=== PATIENT | male | born 1995 | race Caucasian/White ===

== ENCOUNTER 2024-06-24 19:19 | Inpatient (IN) ==
[2024-06-24] MEDS ORDERED: Patient's ALLERGY Info needs ENTERED SCH (19:24)
[2024-06-24 20:48] LABS: Alanine Aminotransferase 11 U/L (7-52); Albumin Globulin Ratio 0.9 (0.9-2); Albumin Level 4.3 gm/dl (3.4-5.0); Alkaline Phosphatase 127 U/L (34-104); Anion Gap 8 (3-11); Aspartate Aminotransferase 12 U/L (13-39); BUN Creatinine Ratio 23.2 (10-20); Bilirubin,Total 0.2 mg/dl (0.2-1.0); Blood Urea Nitrogen 13 mg/dl (6-23); Calcium 9.7 mg/dl (8.6-10.3); Carbon Dioxide 29 mmol/L (21-32); Chloride 106 mmol/L (98-107); Creatinine Clr Calc Pharmacy 223.6 ml/min; Est GFR (African American) > 150.0 ml/min; Est GFR (Non-African American) 138.8 ml/min; Globulin 4.6 gm/dl (2.5-4.0); Glucose 112 mg/dl (70-99(Fasting)); Lipase 23 U/L (11-82); Potassium 3.7 mmol/L (3.5-5.1); Sodium 143 mmol/L (136-145); Total Protein 8.9 gm/dl (6.0-8.3)
[2024-06-24 20:51] LABS: Basophils # (auto) 0.02 K/uL (0.00-0.20); Basophils % (auto) 0.2 %; Eosinophils # (auto) 0.09 K/uL (0.00-0.50); Eosinophils % (auto) 0.9 %; Hematocrit (blood only) 34.3 % (42.0-52.0); Hemoglobin 9.9 g/dl (14.0-18.0); Immature Granulocytes # (auto) 0.04 K/uL (0.01-0.20); Immature Granulocytes % (auto) 0.4 %; Lymphocytes # (auto) 1.42 K/uL (1.20-3.40); Lymphocytes % (auto) 13.4 %; Mean Corpuscular Hemoglobin 21.9 pg (25.0-34.0); Mean Corpuscular Hgb Conc 28.9 g/dL (32.0-36.0); Mean Corpuscular Volume 75.9 fL (80.0-100.0); Mean Platelet Volume 8.7 fL (9.4-12.4); Monocytes # (auto) 0.54 K/uL (0.11-0.59); Monocytes % (auto) 5.1 %; Neutrophils # (auto) 8.46 K/uL (1.40-6.50); Platelet Count 462 K/uL (130-400); RDW Standard Deviation 46.5 fL (36.4-46.3); Red Blood Count 4.52 M/uL (4.70-6.10); White Blood Count 10.57 K/ul (4.8-10.8)
[2024-06-24 20:54] LABS: Troponin I High Sensitivity < 2.3 pg/ml (0-20)
[2024-06-24] MEDS: PIPERACILLIN/TAZOBACTAM 4.5 GM/100 ML BAG IV ONE (21:49)
[2024-06-24] MEDS: HYDROmorphone INJ 0.5 MG/0.5 ML SYR IV STA (21:50)
[2024-06-24] MEDS: SODIUM CHLORIDE 0.9% 500 ML IV STA (21:50)
[2024-06-24] MEDS: OPTIRAY 320 100ml IV ONE (22:29)
[2024-06-24] MEDS: oxyCODONE HCL 20 MG TABCR (OxyCONTIN) PO STA (23:38)
--- NOTE | 2024-06-25 00:11 | Emergency Department Note ---
Impression & Plan UTI (urinary tract infection), bacterial, Suprapubic catheter, Colostomy in place, Paraplegia, Chronic pain ED Provider Note CHIEF COMPLAINT: UTI HISTORY OF PRESENT ILLNESS: This 29-year-old male patient past medical history of traumatic spinal cord injury, paraplegia, suprapubic catheter and colostomy presents to the emergency department with complaints of UTI. Patient states he has had some intermittent vomiting, difficulty sleeping and generalized pain. He normally changes his suprapubic catheter once a week, but states he just moved here last month from [place] and ran out of his catheters. He also states he ran out of his pain medication. Patient initially spent some time in a [facility] after the accident for rehabilitation. He went home to his cousin's house and has now moved in with his sister. Patient states he does not have a local physician and has no medication refills. He is concerned that he has an obstruction of his suprapubic catheter as he has been peeing from his urethra as opposed to draining into the catheter bag. REVIEW OF SYSTEMS: A review of systems was performed with positives and pertinent negatives listed in the history of present illness. 10 systems were reviewed and are otherwise negative. ALLERGIES: see below MEDICATIONS: see below PMH: see below SOCIAL HISTORY: see below DDx: Dehydration, UTI, sepsis, electrolyte abnormality, pneumonia, viral etiology among others. PHYSICAL EXAM: Vital signs reviewed. General: Chronically ill-appearing 29-year-old male, in no significant distress. HEENT: No scleral icterus, PERRLA, neck supple. tracheostomy scar Cardiovascular: Regular rate and rhythm, no extra sounds. Pulmonary: Clear to auscultation bilaterally, normal work of breathing. Abdomen: Soft, nontender, nondistended, positive bowel sounds. Suprapubic catheter with crusting and sediment noted. Colostomy noted to the left lower quadrant. Musculoskeletal: atrophic bilateral lower extremities, subcutaneous edema, stage I pressure ulcer noted to the left calf above the pressure boot. Several areas of superficial ulceration noted. Posttraumatic wound of the left lower buttock. Neurologic: Patient awake alert and oriented x 3, speech is clear Skin: Warm, dry, no rash EMERGENCY DEPARTMENT COURSE/MDM: This pt was evaluated and appeared to be in no distress. IV access was obtained and lab work drawn. Pt was hydrated with NSS. He requested pain medication and was given IV Dilaudid x 1 by request. Lab work is fairly reassuring. Pt was slightly tachycardic, which resolved after IVF and pain medication. Lactate and procal are WNL. WBC 10.5. Blood cx has been sent. Suprapubic catheter was changed, see below. UA with cx has been sent. IV Zosyn was administered. PT requested additional pain medication and was given his home po oxycodone dose. Pt has no local care established, has run out of catheters and medication. At this time he will require hospitalization as he is unable to care for self. He was made aware of the plan and agreed. Case was d/w the hospitalist service for admission and further management. PROCEDURE: Suprapubic catheter exchange Indication: UTI In a sterile fashion, the patient was prepped and draped. Patient's suprapubic catheter site was cleansed with Betadine. Significant crusting was removed. the indwelling catheter balloon was deflated, an 18 Turkmen Wu catheter was inserted and reinflated with 10 cc of sterile water. Immediate urine return was visualized. Catheter was clamped to the patient's left leg. Patient tolerated the procedure well. MONITORING: An order for cardiac monitoring was placed and the patient is noted to be in a Normal sinus rhythm at 100 beats per minute. RADIOLOGY: chest x-ray to my interpretation reveals no evidence of focal lung consolidation or failure. Dilated loops of bowel in the left upper quadrant noted, No free air. DISPOSITION: Admission Past Med/Surg History Problem List (Updated 06/30/24 @ 09:08 by Yvette Burden MD) Chronic pain (Acute) UTI (urinary tract infection), bacterial (Acute) Suprapubic catheter (Acute) Colostomy in place (Acute) Paraplegia (Acute) Social History (Updated 06/25/24 @ 00:17 by Yvette Burden MD) Smoking Status: Current some day smoker Tobacco Type: E-cigarettes / Vaping Hx Alcohol Use: Yes Alcohol type: wine Hx Substance Use: Yes Preferred Language: Portuguese Communication Ability: Effective Graphic Designer Required: No Beliefs That Will Affect Care: None Current Living Situation: Family Current Living Situation Comment: apartment with sister Feels Safe at Home: Yes Safety Concerns: Feels Safe At This Time Assistive Devices: Slide Board and Walker Allergies Allergies Allergy/AdvReac Type Severity Reaction Status Date / Time No Known Allergies Allergy Unverified 06/25/24 02:31 Home Meds Home Medications Medication Instructions Recorded Confirmed ondansetron 4 mg disintegrating 4 mg PO Q8H PRN Vomiting 06/25/24 06/25/24 tablet oxycodone 20 mg tablet 20 mg PO Q4H PRN Pain 06/25/24 06/25/24 pantoprazole 40 mg tablet,delayed 40 mg PO BID 06/25/24 06/25/24 release polyethylene glycol 3350 17 gram 17 g PO DAILY 06/25/24 06/25/24 oral powder packet quetiapine 100 mg tablet 100 mg PO HS 06/25/24 06/25/24 sennosides 8.6 mg tablet (senna) 17.2 mg PO HS 06/25/24 06/25/24 therapeutic multivitamin 1 tab PO DAILY 06/25/24 06/25/24 Results & Data (ED) Vital Signs Vital Signs - 24 hr 06/24/24 19:24 06/24/24 19:31 06/24/24 19:53 Temperature 36.9 C Temperature Source Oral Pulse Rate 101 H Pulse Rate [Apical] 100 H Respiratory Rate 20 Blood Pressure [Right Arm] 104/64 Blood Pressure Mean [Right Arm] 77 Pulse Oximetry 95 Oxygen Delivery Method Room Air Sepsis Recent Fever Within 48 Hours No Sepsis New/Unexplained Change in Mental Status N/A Sepsis Action Taken by Nursing No Action Required 06/24/24 22:51 06/24/24 22:51 06/24/24 23:29 Temperature Temperature Source Pulse Rate 92 H 91 H Pulse Rate [Apical] 91 H Respiratory Rate 20 23 Blood Pressure [Right Arm] 110/66 Blood Pressure Mean [Right Arm] 80 Pulse Oximetry 96 96 Oxygen Delivery Method Room Air Room Air Sepsis Recent Fever Within 48 Hours Sepsis New/Unexplained Change in Mental Status Sepsis Action Taken by Group Home Medications Current Medication List: was personally reviewed by me Laboratory Data Attestation: I reviewed the patient's lab results. 06/29/24 10:13 06/29/24 10:13 Lab Results 06/24/24 06/24/24 06/24/24 Range/Units 19:47 20:48 20:49 WBC 10.57 (4.8-10.8) K/ul RBC 4.52 L (4.70-6.10) M/uL Hgb 9.9 L (14.0-18.0) g/dl Hct 34.3 L (42.0-52.0) % MCV 75.9 L (80.0-100.0) fL MCH 21.9 L (25.0-34.0) pg MCHC 28.9 L (32.0-36.0) g/dL RDW Std Deviation 46.5 H (36.4-46.3) fL RDW Coeff of Nuvia 17.0 H (11.5-14.5) % Plt Count 462 H (130-400) K/uL MPV 8.7 L (9.4-12.4) fL Immature Gran % (Auto) 0.4 % Neut % (Auto) 80.0 % Lymph % (Auto) 13.4 % Allen % (Auto) 5.1 % Eos % (Auto) 0.9 % Baso % (Auto) 0.2 % Reticulocyte % (Auto) 1.35 (0.50-2.00) % Neut # (Auto) 8.46 H (1.40-6.50) K/uL Lymph # (Auto) 1.42 (1.20-3.40) K/uL Allen # (Auto) 0.54 (0.11-0.59) K/uL Eos # (Auto) 0.09 (0.00-0.50) K/uL Baso # (Auto) 0.02 (0.00-0.20) K/uL Reticulocyte # 0.060 (0.020-0.100) 10^6/uL Immature Gran # (Auto) 0.04 (0.01-0.20) K/uL Sodium 143 (136-145) mmol/L Potassium 3.7 (3.5-5.1) mmol/L Chloride 106 (98-107) mmol/L Carbon Dioxide 29 (21-32) mmol/L Anion Gap 8 (3-11) BUN 13 (6-23) mg/dl Creatinine 0.56 L (0.6-1.4) mg/dl Est Cr Clr Drug Dosing 223.6 ml/min Est GFR ( Amer) > 150.0 ml/min Est GFR (Non-Af Amer) 138.8 ml/min BUN/Creatinine Ratio 23.2 H (10-20) Glucose 112 H (70-99(Fasting)) mg/dl Estimat Average Glucose 82 mg/dl Hemoglobin A1c 4.5 (4.5-5.6) % Lactate 1.2 (0.4-2.0) mmol/L Calcium 9.7 (8.6-10.3) mg/dl Iron 28 L (35-175) mcg/dl Transferrin 289 (200-360) mg/dl Ferritin 20.6 (8-388) ng/ml Total Bilirubin 0.2 (0.2-1.0) mg/dl AST 12 L (13-39) U/L ALT 11 (7-52) U/L Alkaline Phosphatase 127 H (34-104) U/L Troponin I High Sens < 2.3 (0-20) pg/ml Total Protein 8.9 H (6.0-8.3) gm/dl Albumin 4.3 (3.4-5.0) gm/dl Globulin 4.6 H (2.5-4.0) gm/dl Albumin/Globulin Ratio 0.9 (0.9-2) Lipase 23 (11-82) U/L Vitamin B12 302 (180-914) pg/ml Folate 8.25 (>5.38) ng/ml Procalcitonin < 0.02 (0-0.5) ng/ml Urine Color Urine Appearance (Clear) Urine pH (4.5-7.5) Ur Specific [place] (1.000-1.030) Urine Protein (Negative) Urine Glucose (UA) (Negative) Urine Ketones (Negative) Urine Blood (Negative) Urine Nitrite (Negative) Urine Bilirubin (Negative) Urine Urobilinogen (Negative) Ur Leukocyte Esterase (Negative) Urine WBC (Auto) (0-5) /hpf Urine RBC (Auto) (0-2) /hpf U Hyaline Cast (Auto) (0-2) /lpf U Epithel Cells (Auto) (0-2) /hpf Urine Bacteria (Auto) (None Seen) 06/24/24 Range/Units 22:55 WBC (4.8-10.8) K/ul RBC (4.70-6.10) M/uL Hgb (14.0-18.0) g/dl Hct (42.0-52.0) % MCV (80.0-100.0) fL MCH (25.0-34.0) pg MCHC (32.0-36.0) g/dL RDW Std Deviation (36.4-46.3) fL RDW Coeff of Nuvia (11.5-14.5) % Plt Count (130-400) K/uL MPV (9.4-12.4) fL Immature Gran % (Auto) % Neut % (Auto) % Lymph % (Auto) % Allen % (Auto) % Eos % (Auto) % Baso % (Auto) % Reticulocyte % (Auto) (0.50-2.00) % Neut # (Auto) (1.40-6.50) K/uL Lymph # (Auto) (1.20-3.40) K/uL Allen # (Auto) (0.11-0.59) K/uL Eos # (Auto) (0.00-0.50) K/uL Baso # (Auto) (0.00-0.20) K/uL Reticulocyte # (0.020-0.100) 10^6/uL Immature Gran # (Auto) (0.01-0.20) K/uL Sodium (136-145) mmol/L Potassium (3.5-5.1) mmol/L Chloride (98-107) mmol/L Carbon Dioxide (21-32) mmol/L Anion Gap (3-11) BUN (6-23) mg/dl Creatinine (0.6-1.4) mg/dl Est Cr Clr Drug Dosing ml/min Est GFR ( Amer) ml/min Est GFR (Non-Af Amer) ml/min BUN/Creatinine Ratio (10-20) Glucose (70-99(Fasting)) mg/dl Estimat Average Glucose mg/dl Hemoglobin A1c (4.5-5.6) % Lactate (0.4-2.0) mmol/L Calcium (8.6-10.3) mg/dl Iron (35-175) mcg/dl Transferrin (200-360) mg/dl Ferritin (8-388) ng/ml Total Bilirubin (0.2-1.0) mg/dl AST (13-39) U/L ALT (7-52) U/L Alkaline Phosphatase (34-104) U/L Troponin I High Sens (0-20) pg/ml Total Protein (6.0-8.3) gm/dl Albumin (3.4-5.0) gm/dl Globulin (2.5-4.0) gm/dl Albumin/Globulin Ratio (0.9-2) Lipase (11-82) U/L Vitamin B12 (180-914) pg/ml Folate (>5.38) ng/ml Procalcitonin (0-0.5) ng/ml Urine Color Yellow Urine Appearance Cloudy A (Clear) Urine pH 8.5 H (4.5-7.5) Ur Specific [place] > 1.045 H (1.000-1.030) Urine Protein 1+ H (Negative) Urine Glucose (UA) Negative (Negative) Urine Ketones Negative (Negative) Urine Blood 1+ H (Negative) Urine Nitrite Positive A (Negative) Urine Bilirubin Negative (Negative) Urine Urobilinogen Negative (Negative) Ur Leukocyte Esterase 2+ H (Negative) Urine WBC (Auto) >50 H (0-5) /hpf Urine RBC (Auto) >20 H (0-2) /hpf U Hyaline Cast (Auto) 0-2 (0-2) /lpf U Epithel Cells (Auto) 0-2 (0-2) /hpf Urine Bacteria (Auto) 2+ H (None Seen) Administered Medications Ferrous Sulfate (Ferrous Sulfate 325 Mg Tab) 325 mg PO QAM ON LICENSE OF [facility] Stop: 07/26/24 08:59 Last Admin: 06/29/24 10:33 Dose: Not Given Documented By: Admin: 06/28/24 08:49 Dose: Not Given Documented By: Admin: 06/27/24 08:49 Dose: Not Given Documented By: Admin: 06/26/24 08:28 Dose: Not Given Documented By: [facility] Hydromorphone HCl (Hydromorphone Inj 0.5 Mg/0.5 Ml Syr) 0.5 mg IV Q8H PRN PRN Reason: Severe Pain (Scale 7, 8, 9,10) Stop: 07/11/24 11:49 Last Admin: 06/30/24 02:45 Dose: 0.5 mg Documented By: Admin: 06/29/24 18:43 Dose: 0.5 mg Documented By: Admin: 06/29/24 11:09 Dose: 0.5 mg Documented By: Admin: 06/29/24 03:22 Dose: 0.5 mg Documented By: Admin: 06/28/24 19:16 Dose: 0.5 mg Documented By: Admin: 06/28/24 11:15 Dose: 0.5 mg Documented By: DAVID Promethazine HCl (Phenergan) 6.25 mg in 50.25 mls @ 201 mls/hr IV Q6H PRN PRN Reason: Nausea And Vomiting Stop: 07/25/24 01:38 Last Infusion: 06/26/24 19:25 Dose: Infused Documented By: Admin: 06/26/24 18:12 Dose: 201 mls/hr Documented By: Infusion: 06/25/24 04:36 Dose: Infused Documented By: Admin: 06/25/24 04:10 Dose: 201 mls/hr Documented By: AUDREY Ceftriaxone Sodium (Rocephin) 2,000 mg in 50 mls @ 100 mls/hr IV Q24H SAHARA; Protocol Stop: 06/30/24 11:59 Last Infusion: 06/29/24 12:54 Dose: Infused Documented By: Admin: 06/29/24 12:24 Dose: 100 mls/hr Documented By: ABDIRASHID Multivitamins/Minerals (Cerovite Adv Formula Tab) 1 tab PO DAILY SAHARA Stop: 07/25/24 08:59 Last Admin: 06/29/24 10:34 Dose: 1 tab Documented By: Admin: 06/28/24 08:49 Dose: Not Given Documented By: Admin: 06/27/24 08:49 Dose: Not Given Documented By: Admin: 06/26/24 08:29 Dose: Not Given Documented By: Admin: 06/25/24 09:50 Dose: Not Given Documented By: TRE Oxycodone HCl (Oxycodone Hcl Ir 5 Mg Tab (Immediate Release)) 20 mg PO Q4H PRN PRN Reason: Moderate Pain (Scale 4, 5, 6) Stop: 07/09/24 03:43 Last Admin: 06/30/24 06:04 Dose: 20 mg Documented By: Admin: 06/30/24 00:49 Dose: 20 mg Documented By: Admin: 06/29/24 20:21 Dose: 20 mg Documented By: Admin: 06/29/24 14:53 Dose: 20 mg Documented By: Admin: 06/29/24 10:32 Dose: 20 mg Documented By: Admin: 06/29/24 06:06 Dose: 20 mg Documented By: Admin: 06/29/24 01:46 Dose: 20 mg Documented By: Admin: 06/28/24 21:46 Dose: 20 mg Documented By: Admin: 06/28/24 17:33 Dose: 20 mg Documented By: [facility] Admin: 06/28/24 13:06 Dose: 20 mg Documented By: [facility] Admin: 06/28/24 08:54 Dose: 20 mg Documented By: [facility] Admin: 06/28/24 05:02 Dose: 20 mg Documented By: Admin: 06/27/24 20:58 Dose: 20 mg Documented By: Admin: 06/27/24 16:34 Dose: 20 mg Documented By: [facility] Pantoprazole Sodium (Pantoprazole 40 Mg Tab) 40 mg PO BID SAHARA Stop: 07/25/24 08:59 Last Admin: 06/29/24 22:10 Dose: Not Given Documented By: Admin: 06/29/24 10:35 Dose: Not Given Documented By: Admin: 06/28/24 21:45 Dose: Not Given Documented By: Admin: 06/28/24 08:49 Dose: Not Given Documented By: [facility] Admin: 06/27/24 20:58 Dose: Not Given Documented By: Admin: 06/27/24 08:49 Dose: Not Given Documented By: [facility] Admin: 06/26/24 20:35 Dose: Not Given Documented By: [facility] Admin: 06/26/24 08:29 Dose: Not Given Documented By: [facility] Admin: 06/25/24 23:02 Dose: Not Given Documented By: [facility] Admin: 06/25/24 09:50 Dose: Not Given Documented By: Quetiapine Fumarate (Quetiapine Fumarate 100 Mg Tablet) 100 mg PO HS SAHARA Stop: 07/25/24 20:59 Last Admin: 06/29/24 22:10 Dose: Not Given Documented By: Admin: 06/28/24 21:46 Dose: 100 mg Documented By: Admin: 06/27/24 21:22 Dose: 100 mg Documented By: Admin: 06/26/24 22:12 Dose: 100 mg Documented By: Admin: 06/25/24 23:02 Dose: 100 mg Documented By: CARLOS Senna/Docusate Sodium (Docusate Sodium/Senna 50/8.6mg Tab) 1 tab PO QAM SAHARA Stop: 07/25/24 08:59 Last Admin: 06/29/24 10:43 Dose: 1 tab Documented By: Admin: 06/28/24 08:49 Dose: Not Given Documented By: Admin: 06/27/24 08:49 Dose: Not Given Documented By: Admin: 06/26/24 08:28 Dose: Not Given Documented By: Admin: 06/25/24 09:50 Dose: Not Given Documented By: TRE Discontinued Medications Furosemide (Furosemide Inj 20 Mg/2 Ml Vial) 20 mg IV ONE ONE Stop: 06/25/24 05:21 Last Admin: 06/25/24 09:02 Dose: Not Given Documented By: TRE Furosemide (Furosemide 40 Mg/4 Ml Vial) 40 mg IV ONE ONE Stop: 06/28/24 11:37 Last Admin: 06/28/24 13:05 Dose: 40 mg Documented By: DAVID Furosemide (Furosemide 40 Mg/4 Ml Vial) 60 mg IV ONE ONE Stop: 06/29/24 10:59 Last Admin: 06/29/24 12:24 Dose: 60 mg Documented By: ABDIRASHID Hydromorphone HCl (Hydromorphone Inj 0.5 Mg/0.5 Ml Syr) 0.5 mg IV NOW STA Stop: 06/24/24 21:03 Last Admin: 06/24/24 21:50 Dose: 0.5 mg Documented By: ARISTIDES Hydromorphone HCl (Hydromorphone Inj 0.5 Mg/0.5 Ml Syr) 0.5 mg IV Q6H PRN PRN Reason: Pain Stop: 07/09/24 03:45 Last Admin: 06/27/24 07:21 Dose: 0.5 mg Documented By: Admin: 06/27/24 01:01 Dose: 0.5 mg Documented By: Admin: 06/26/24 18:57 Dose: 0.5 mg Documented By: Admin: 06/26/24 12:43 Dose: 0.5 mg Documented By: [facility] Hydromorphone HCl (Hydromorphone Inj 0.5 Mg/0.5 Ml Syr) 0.5 mg IV Q6H PRN PRN Reason: Severe Pain (Scale 7, 8, 9,10) Stop: 07/09/24 03:45 Last Admin: 06/28/24 03:28 Dose: 0.5 mg Documented By: Admin: 06/27/24 19:53 Dose: 0.5 mg Documented By: Admin: 06/27/24 13:32 Dose: 0.5 mg Documented By: DAVID Sodium Chloride (Nss) 500 mls @ 999 mls/hr IV .Q31M STA Stop: 06/24/24 20:58 Last Infusion: 06/24/24 22:21 Dose: Infused Documented By: Admin: 06/24/24 21:50 Dose: 999 mls/hr Documented By: ARISTIDES Piperacillin Sod/Tazobactam Sod (Zosyn) 4.5 gm in 100 mls @ 200 mls/hr IV NOW ONE Stop: 06/24/24 21:58 Last Infusion: 06/24/24 22:21 Dose: Infused Documented By: Admin: 06/24/24 21:49 Dose: 200 mls/hr Documented By: ARISTIDES Cefepime HCl 2,000 mg/ Syringe 20 mls @ 5 mls/min IV Q8H ON LICENSE OF [facility]; Protocol Stop: 07/05/24 02:59 Last Admin: 06/28/24 11:15 Dose: 5 mls/min Documented By: Admin: 06/28/24 03:28 Dose: 5 mls/min Documented By: Admin: 06/27/24 18:34 Dose: 5 mls/min Documented By: Admin: 06/27/24 11:20 Dose: 5 mls/min Documented By: Admin: 06/27/24 03:04 Dose: 5 mls/min Documented By: Admin: 06/26/24 20:34 Dose: 5 mls/min Documented By: Admin: 06/26/24 11:35 Dose: 5 mls/min Documented By: Admin: 06/26/24 04:00 Dose: 5 mls/min Documented By: Admin: 06/25/24 18:37 Dose: 5 mls/min Documented By: Admin: 06/25/24 12:07 Dose: 5 mls/min Documented By: Admin: 06/25/24 04:00 Dose: 5 mls/min Documented By: AUDREY Iron Sucrose 300 mg/ Sodium (Chloride) 265 mls @ 176.667 mls/hr IV TODAY@0930 ONE; Protocol Stop: 06/25/24 10:59 Last Infusion: 06/25/24 11:20 Dose: Infused Documented By: Admin: 06/25/24 09:50 Dose: 176.7 mls/hr Documented By: TRE Albumin Human (Albumin 25%) 25 gm in 100 mls @ 50 mls/hr IV ONE ONE Stop: 06/26/24 06:36 Last Infusion: 06/26/24 11:32 Dose: Infused Documented By: Admin: 06/26/24 09:32 Dose: 50 mls/hr Documented By: DAVID Ceftriaxone Sodium (Rocephin) 2,000 mg in 50 mls @ 100 mls/hr IV Q24H SAHARA; Protocol Stop: 07/08/24 11:59 Last Admin: 06/28/24 13:36 Dose: Not Given Documented By: DAVID Ioversol (Optiray 320 100ml) 92 ml IV ONCE ONE Stop: 06/24/24 22:30 Last Admin: 06/24/24 22:29 Dose: 92 ml Documented By: SD Ketorolac Tromethamine (Ketorolac Tromethamine 15 Mg/Ml Vial) 15 mg IV NOW ONE Stop: 06/25/24 02:46 Last Admin: 06/25/24 03:56 Dose: Not Given Documented By: AUDREY Ketorolac Tromethamine (Ketorolac Tromethamine 15 Mg/Ml Vial) 15 mg IV Q6H PRN PRN Reason: Pain Stop: 06/30/24 03:44 Last Admin: 06/26/24 15:33 Dose: 15 mg Documented By: Admin: 06/25/24 13:19 Dose: 15 mg Documented By: Admin: 06/25/24 04:10 Dose: 15 mg Documented By: AUDREY Oxycodone HCl (Oxycodone Hcl 20 Mg Tabcr (Oxycontin)) 20 mg PO NOW STA Stop: 06/24/24 23:02 Last Admin: 06/24/24 23:38 Dose: 20 mg Documented By: FABIAN Oxycodone HCl (Oxycodone Hcl Ir 5 Mg Tab (Immediate Release)) 20 mg PO Q4H PRN PRN Reason: Pain Stop: 07/09/24 03:43 Last Admin: 06/27/24 12:34 Dose: 20 mg Documented By: Admin: 06/27/24 08:44 Dose: 20 mg Documented By: Admin: 06/27/24 03:05 Dose: 20 mg Documented By: Admin: 06/26/24 22:12 Dose: 20 mg Documented By: Admin: 06/26/24 18:03 Dose: 20 mg Documented By: Admin: 06/26/24 13:51 Dose: 20 mg Documented By: Admin: 06/26/24 08:24 Dose: 20 mg Documented By: Admin: 06/26/24 04:00 Dose: 20 mg Documented By: Admin: 06/25/24 23:02 Dose: 20 mg Documented By: Admin: 06/25/24 18:51 Dose: 20 mg Documented By: Admin: 06/25/24 14:26 Dose: 20 mg Documented By: Admin: 06/25/24 09:58 Dose: 20 mg Documented By: Admin: 06/25/24 04:00 Dose: 20 mg Documented By: AUDREY Quetiapine Fumarate (Quetiapine Fumarate 100 Mg Tablet) 100 mg PO NOW STA Stop: 06/25/24 02:34 Last Admin: 06/25/24 04:00 Dose: 100 mg Documented By: AUDREY Discharge Plan Visit Data Chief Complaint: Urinary Symptoms Stated Complaint: UTI ED Provider: Yvette Burden Discharge Problem: UTI (urinary tract infection), bacterial, Suprapubic catheter, Colostomy in place, Paraplegia, Chronic pain Patient Disposition: Admitted As Inpatient Discharge Instructions Interventions: ED Discharge Assessment Last Done: 06/25/24 01:15 Discharge Problem: Chronic pain Qualifiers: Chronic pain type: chronic pain syndrome Qualified Code(s): G89.4 - Chronic pain syndrome
--- NOTE | 2024-06-25 00:18 | CT Scan Report ---
Exam(s): CT ABDOMEN + PELVIS With Contrast IV Amt: 92 cc opti 320 EXAM: CT Abdomen and Pelvis With Intravenous Contrast CLINICAL HISTORY: Abdominal Pain and hematuria. TECHNIQUE: Axial computed tomography images of the abdomen and pelvis with intravenous contrast. CTDI is 23 mGy and DLP is 1267 mGy-cm. Automated exposure control was utilized for the study. A dose lowering technique was utilized adhering to the principles of ALARA. CONTRAST: Patient received 92 cc opti 320 of IV contrast COMPARISON: No relevant prior studies available. FINDINGS: Lung bases: Unremarkable. No mass. No consolidation. ABDOMEN: Liver: Unremarkable. No mass. Gallbladder and bile ducts: Cholelithiasis. No ductal dilation. Pancreas: Unremarkable. No mass. No ductal dilation. Spleen: Unremarkable. No splenomegaly. Adrenals: Unremarkable. No mass. Kidneys and ureters: Unremarkable. No solid mass. No hydronephrosis. Stomach and bowel: There is small inflammatory stranding of the left lower quadrant colostomy. No obstruction. No mucosal thickening. PELVIS: Appendix: No findings to suggest acute appendicitis. Bladder: Unremarkable. No mass. Reproductive: Unremarkable as visualized. ABDOMEN and PELVIS: Intraperitoneal space: Unremarkable. No free air. No significant fluid collection. Bones/joints: No acute fracture. No dislocation. Soft tissues: There is marked nonspecific subcutaneous edema and scarring most prominent of the flanks. Small fat-containing umbilical hernia. Vasculature: Unremarkable. No abdominal aortic aneurysm. Lymph nodes: Unremarkable. No enlarged lymph nodes. IMPRESSION: 1. There is small inflammatory stranding of the left lower quadrant colostomy. This may be infectious or inflammatory. 2. Cholelithiasis. 3. There is marked nonspecific subcutaneous edema and scarring most prominent of the flanks Electronically signed by: Hazel Amador MD 06/25/24 00:17 AM
[2024-06-25 00:19] LABS: Appearance Urine Cloudy (Clear); Bacteria Urine Automated 2+ (None Seen); Bilirubin Urine Negative (Negative); Blood Urine 1+ (Negative); Cast Urine Automated 0-2 /lpf (0-2); Color Urine Yellow; Epithelial Cell Urine Auto 0-2 /hpf (0-2); Glucose Urine UA Negative (Negative); Ketones Urine Negative (Negative); Leukocyte Esterase Urine 2+ (Negative); Nitrite Urine Positive (Negative); Protein Urine 1+ (Negative); RBC Urine Automated >20 /hpf (0-2); Specific Gravity Urine > 1.045 (1.000-1.030); Urobilinogen Urine Negative (Negative); WBC Urine Automated >50 /hpf (0-5); pH Urine 8.5 (4.5-7.5)
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
[2024-06-25] MEDS ORDERED: MELATONIN 3 MG TAB PO PRN (01:41)
[2024-06-25 01:42] LABS: Folate (Folic Acid),Ser orPlas 8.25 ng/ml (>5.38)
[2024-06-25] MEDS ORDERED: POLYETHYLENE (MIRALAX) 17 GM PACK PO PRN (01:42)
[2024-06-25 02:48] LABS: Iron 28 mcg/dl (35-175); Transferrin 289 mg/dl (200-360)
[2024-06-25 03:08] LABS: Ferritin 20.6 ng/ml (8-388)
[2024-06-25] MEDS: KETOROLAC TROMETHAMINE 15 MG/ML VIAL IV ONE (03:56)
--- NOTE | 2024-06-25 03:56 | Ultrasound Report ---
Exam(s): US VENOUS BILATERAL LOWER EXTREMITIES EXAM: US Duplex Bilateral Lower Extremities Veins CLINICAL HISTORY: Reason for exam: leg swelling. TECHNIQUE: Real-time duplex ultrasound scan of the bilateral lower extremity veins integrating B-mode two-dimensional vascular structure, Doppler spectral analysis, color flow Doppler imaging and compression. COMPARISON: No relevant prior studies available. FINDINGS: Right deep veins: Unremarkable. No DVT in the right common femoral, femoral, proximal deep femoral or popliteal veins. The veins demonstrate normal color flow, are normally compressible, with normal phasic flow and/or augmentation response. Right superficial veins: Unremarkable. No thrombus in the visualized right great saphenous vein. Left deep veins: Unremarkable. No DVT in the left common femoral, femoral, proximal deep femoral or popliteal veins. The veins demonstrate normal color flow, are normally compressible, with normal phasic flow and/or augmentation response. Left superficial veins: Unremarkable. No thrombus in the visualized left great saphenous vein. Soft tissues: Edema at the bilateral calves. IMPRESSION: 1. Normal bilateral lower extremity duplex venous ultrasound. 2. Edema at the bilateral calves. Electronically signed by: Meng Amador MD 06/25/24 03:54 AM
[2024-06-25] MEDS: oxyCODONE HCL IR 5 MG TAB (IMMEDIATE RELEASE) PO PRN (04:00)
[2024-06-25] MEDS: CEFEPIME 2,000 MG in SYRINGE 0 ML IV SCH (04:00)
[2024-06-25] MEDS: QUEtiapine FUMARATE 100 MG TABLET PO STA (04:00)
[2024-06-25] MEDS: KETOROLAC TROMETHAMINE 15 MG/ML VIAL IV PRN (04:10)
[2024-06-25] MEDS: PROMETHAZINE 6.25 MG/50.25 ML BAG IV PRN (04:10)
--- NOTE | 2024-06-25 07:16 | XRay Report ---
XR chest 1V portable HISTORY: infection COMPARISON: None. FINDINGS: No pneumothorax. No pleural effusions. The cardiac silhouette is normal in size. No evidenc e for bone edema. No focal lung consolidations to suggest a pneumonia. There are few small bibasilar linear densities suggesting subsegmental atelectasis or scarring. IMPRESSION: No acute process. ACT 112: Negative or not required by law. Electronically signed by: López Champion M.D. 06/25/2024 7:14 AM
[2024-06-25] MEDS: FUROSEMIDE INJ 20 MG/2 ML VIAL IV ONE (09:02)
[2024-06-25] MEDS: IRON SUCROSE 300 MG in SODIUM CHLORIDE 0.9% 250 ML IV ONE (09:50)
[2024-06-25] MEDS: PANTOprazole 40 MG TAB PO SCH (09:50)
[2024-06-25] MEDS: CEROVITE ADV FORMULA TAB PO SCH (09:50)
[2024-06-25] MEDS: DOCUSATE SODIUM/SENNA 50/8.6MG TAB PO SCH (09:50)
[2024-06-25 15:47] LABS: Reticulocyte % 1.35 % (0.50-2.00); Reticulocytes # 0.06 10^6/uL (0.020-0.100)
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
[2024-06-25 21:06] LABS: Estimated Average Glucose 82 mg/dl; Hemoglobin A1C 4.5 % (4.5-5.6)
[2024-06-25] MEDS: QUEtiapine FUMARATE 100 MG TABLET PO SCH (23:02)
[2024-06-26] MEDS: FERROUS SULFATE 325 MG TAB PO SCH (08:28)
[2024-06-26] MEDS: ALBUMIN 25% 25 GM/100 ML VIAL IV ONE (09:32)
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
[2024-06-26] MEDS: HYDROmorphone INJ 0.5 MG/0.5 ML SYR IV PRN (12:43)
[2024-06-26 21:10] LABS: Hematocrit (blood only) 30.9 % (42.0-52.0); Hemoglobin 8.9 g/dl (14.0-18.0); Mean Corpuscular Hemoglobin 21.4 pg (25.0-34.0); Mean Corpuscular Hgb Conc 28.8 g/dL (32.0-36.0); Mean Corpuscular Volume 74.3 fL (80.0-100.0); Mean Platelet Volume 8.3 fL (9.4-12.4); Platelet Count 313 K/uL (130-400); RDW Coefficient of Variation 17.1 % (11.5-14.5); RDW Standard Deviation 45.6 fL (36.4-46.3); Red Blood Count 4.16 M/uL (4.70-6.10); White Blood Count 8.91 K/ul (4.8-10.8)
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
[2024-06-27] MEDS: HYDROmorphone INJ 0.5 MG/0.5 ML SYR IV PRN (13:32)
[2024-06-27] MEDS: oxyCODONE HCL IR 5 MG TAB (IMMEDIATE RELEASE) PO PRN (16:34)
[2024-06-28] MEDS: HYDROmorphone INJ 0.5 MG/0.5 ML SYR IV PRN (11:15)
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
--- NOTE | 2024-06-28 12:50 | XRay Report ---
XR chest 1V portable CLINICAL HISTORY: Cough. Chest pain. COMPARISON STUDY: Chest radiograph June 24, 2024. FINDINGS: Lung volumes are normal. Lungs are clear. Surgical suture line projects over the lateral ri ght lower lung. There is no pneumothorax or pleural effusion. Cardiac size is normal. Mediastinal con tours are normal. There is no evidence for pulmonary edema. IMPRESSION: No acute cardiopulmonary findings. ACT 112: Negative or not required by law. Electronically signed by: Alex Almonte M.D. 06/28/2024 12:49 PM
[2024-06-28] MEDS: FUROSEMIDE 40 MG/4 ML VIAL IV ONE (13:05)
[2024-06-28] MEDS: cefTRIAXone SODIUM 2,000 MG/50 ML BAG IV SCH (13:36)
[2024-06-28 16:03] LABS: Hematocrit (blood only) 34.3 % (42.0-52.0); Hemoglobin 10.1 g/dl (14.0-18.0); Mean Corpuscular Hemoglobin 22.1 pg (25.0-34.0); Mean Corpuscular Hgb Conc 29.4 g/dL (32.0-36.0); Mean Corpuscular Volume 74.9 fL (80.0-100.0); Mean Platelet Volume 8.1 fL (9.4-12.4); Platelet Count 370 K/uL (130-400); RDW Coefficient of Variation 18.4 % (11.5-14.5); RDW Standard Deviation 45.6 fL (36.4-46.3); Red Blood Count 4.58 M/uL (4.70-6.10); White Blood Count 10.18 K/ul (4.8-10.8)
[2024-06-28 16:22] LABS: Anion Gap 9 (3-11); BUN Creatinine Ratio 20.5 (10-20); Blood Urea Nitrogen 9 mg/dl (6-23); Calcium 9.7 mg/dl (8.6-10.3); Carbon Dioxide 28 mmol/L (21-32); Chloride 101 mmol/L (98-107); Creatinine Clr Calc Pharmacy 284.6 ml/min; Est GFR (African American) > 150.0 ml/min; Est GFR (Non-African American) > 150.0 ml/min; Glucose 102 mg/dl (70-99(Fasting)); Potassium 3.5 mmol/L (3.5-5.1); Sodium 138 mmol/L (136-145)
[2024-06-29 10:44] LABS: Hematocrit (blood only) 36.8 % (42.0-52.0); Hemoglobin 10.7 g/dl (14.0-18.0); Mean Corpuscular Hgb Conc 29.1 g/dL (32.0-36.0); Mean Corpuscular Volume 75.7 fL (80.0-100.0); Mean Platelet Volume 8.8 fL (9.4-12.4); Platelet Count 367 K/uL (130-400); RDW Coefficient of Variation 18.6 % (11.5-14.5); RDW Standard Deviation 46.5 fL (36.4-46.3); Red Blood Count 4.86 M/uL (4.70-6.10)
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
[2024-06-29 10:56] LABS: Alanine Aminotransferase 8 U/L (7-52); Albumin Level 4.5 gm/dl (3.4-5.0); Alkaline Phosphatase 122 U/L (34-104); Anion Gap 9 (3-11); Aspartate Aminotransferase 14 U/L (13-39); BUN Creatinine Ratio 22.5 (10-20); Bilirubin,Total 0.5 mg/dl (0.2-1.0); Blood Urea Nitrogen 9 mg/dl (6-23); Calcium 9.8 mg/dl (8.6-10.3); Carbon Dioxide 29 mmol/L (21-32); Chloride 100 mmol/L (98-107); Creatinine Clr Calc Pharmacy 278.8 ml/min; Est GFR (African American) > 150.0 ml/min; Est GFR (Non-African American) > 150.0 ml/min; Globulin 4.5 gm/dl (2.5-4.0); Glucose 97 mg/dl (70-99(Fasting)); Potassium 3.7 mmol/L (3.5-5.1); Sodium 138 mmol/L (136-145)
[2024-06-29] MEDS: cefTRIAXone SODIUM 2,000 MG/50 ML BAG IV SCH (12:24)
[2024-06-29] MEDS: FUROSEMIDE 40 MG/4 ML VIAL IV ONE (12:24)
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
[2024-06-30 12:24] LABS: Alanine Aminotransferase 8 U/L (7-52); Albumin Globulin Ratio 1.1 (0.9-2); Albumin Level 4.5 gm/dl (3.4-5.0); Alkaline Phosphatase 111 U/L (34-104); Anion Gap 9 (3-11); Aspartate Aminotransferase 13 U/L (13-39); BUN Creatinine Ratio 33.3 (10-20); Bilirubin,Total 0.4 mg/dl (0.2-1.0); Blood Urea Nitrogen 9 mg/dl (6-23); Calcium 9.7 mg/dl (8.6-10.3); Carbon Dioxide 28 mmol/L (21-32); Chloride 98 mmol/L (98-107); Creatinine Clr Calc Pharmacy 413.1 ml/min; Est GFR (African American) > 150.0 ml/min; Est GFR (Non-African American) > 150.0 ml/min; Globulin 4.1 gm/dl (2.5-4.0); Glucose 97 mg/dl (70-99(Fasting)); Magnesium 1.9 mg/dl (1.7-2.4); Phosphorus 3.5 mg/dl (2.5-4.9); Potassium 3.9 mmol/L (3.5-5.1); Sodium 135 mmol/L (136-145); Total Protein 8.6 gm/dl (6.0-8.3)
[2024-06-30] MEDS: ACETAMINOPHEN 325 MG TAB PO PRN (13:17)
[2024-06-30] MEDS: FUROSEMIDE 40 MG/4 ML VIAL IV ONE (17:25)
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
[2024-07-01] MEDS: oxyCODONE HCL IR 5 MG TAB (IMMEDIATE RELEASE) PO PRN (13:22)
[2024-07-01] MEDS: FUROSEMIDE 40 MG/4 ML VIAL IV ONE (14:34)
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
[2024-07-04] MEDS: DAPTOmycin 300 MG in SYRINGE 0 ML IV SCH (22:52)
[2024-07-04] MEDS: cefTRIAXone SODIUM 2,000 MG/50 ML BAG IV SCH (23:00)
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
[2024-07-06] MEDS: CEFEPIME 2,000 MG in SYRINGE 0 ML IV SCH (18:52)
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
[2024-07-08 14:50] LABS: Basophils # (auto) 0.02 K/uL (0.00-0.20); Basophils % (auto) 0.3 %; Eosinophils # (auto) 0.22 K/uL (0.00-0.50); Eosinophils % (auto) 2.9 %; Hemoglobin 9.7 g/dl (14.0-18.0); Immature Granulocytes # (auto) 0.03 K/uL (0.01-0.20); Immature Granulocytes % (auto) 0.4 %; Lymphocytes # (auto) 1.87 K/uL (1.20-3.40); Lymphocytes % (auto) 24.6 %; Mean Corpuscular Hemoglobin 21.7 pg (25.0-34.0); Mean Corpuscular Hgb Conc 29.4 g/dL (32.0-36.0); Mean Platelet Volume 8.6 fL (9.4-12.4); Monocytes # (auto) 0.66 K/uL (0.11-0.59); Monocytes % (auto) 8.7 %; Neutrophils % (auto) 63.1 %; Platelet Count 299 K/uL (130-400); RDW Coefficient of Variation 18.6 % (11.5-14.5); RDW Standard Deviation 49.9 fL (36.4-46.3); Red Blood Count 4.46 M/uL (4.70-6.10)
[2024-07-08 15:05] LABS: Alanine Aminotransferase 8 U/L (7-52); Albumin Level 3.9 gm/dl (3.4-5.0); Alkaline Phosphatase 110 U/L (34-104); Anion Gap 7 (3-11); Aspartate Aminotransferase 12 U/L (13-39); BUN Creatinine Ratio 32.4 (10-20); Bilirubin,Total 0.3 mg/dl (0.2-1.0); Blood Urea Nitrogen 11 mg/dl (6-23); Calcium 9.3 mg/dl (8.6-10.3); Carbon Dioxide 27 mmol/L (21-32); Chloride 102 mmol/L (98-107); Est GFR (African American) > 150.0 ml/min; Est GFR (Non-African American) > 150.0 ml/min; Globulin 3.8 gm/dl (2.5-4.0); Glucose 94 mg/dl (70-99(Fasting)); Magnesium 1.9 mg/dl (1.7-2.4); Phosphorus 3.9 mg/dl (2.5-4.9); Potassium 4.2 mmol/L (3.5-5.1); Sodium 136 mmol/L (136-145); Total Protein 7.7 gm/dl (6.0-8.3)
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
[2024-07-08] MEDS: FUROSEMIDE INJ 20 MG/2 ML VIAL IV ONE (19:34)
[2024-07-09] MEDS: oxyCODONE HCL IR 5 MG TAB (IMMEDIATE RELEASE) PO PRN (05:54)
[2024-07-09] MEDS: POLYETHYLENE (MIRALAX) 17 GM PACK PO PRN (10:34)
[2024-07-09] MEDS: CEFEPIME 2,000 MG in SYRINGE 0 ML IV SCH (13:49)
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
[2024-07-09 15:31] LABS: Basophils # (auto) 0.03 K/uL (0.00-0.20); Basophils % (auto) 0.4 %; Eosinophils # (auto) 0.28 K/uL (0.00-0.50); Eosinophils % (auto) 3.6 %; Hematocrit (blood only) 34.4 % (42.0-52.0); Hemoglobin 10.2 g/dl (14.0-18.0); Immature Granulocytes # (auto) 0.02 K/uL (0.01-0.20); Immature Granulocytes % (auto) 0.3 %; Lymphocytes # (auto) 1.67 K/uL (1.20-3.40); Lymphocytes % (auto) 21.5 %; Mean Corpuscular Hemoglobin 21.9 pg (25.0-34.0); Mean Corpuscular Hgb Conc 29.7 g/dL (32.0-36.0); Mean Platelet Volume 8.7 fL (9.4-12.4); Monocytes # (auto) 0.77 K/uL (0.11-0.59); Monocytes % (auto) 9.9 %; Neutrophils % (auto) 64.3 %; Platelet Count 324 K/uL (130-400); RDW Standard Deviation 50.2 fL (36.4-46.3); Red Blood Count 4.65 M/uL (4.70-6.10); White Blood Count 7.77 K/ul (4.8-10.8)
[2024-07-09 15:51] LABS: Anion Gap 8 (3-11); Calcium 9.3 mg/dl (8.6-10.3); Carbon Dioxide 26 mmol/L (21-32); Chloride 105 mmol/L (98-107); Sodium 139 mmol/L (136-145)
[2024-07-09 15:57] LABS: BUN Creatinine Ratio 31.8 (10-20); Blood Urea Nitrogen 14 mg/dl (6-23); Creatinine Clr Calc Pharmacy 253.5 ml/min; Est GFR (African American) > 150.0 ml/min; Est GFR (Non-African American) > 150.0 ml/min; Glucose 114 mg/dl (70-99(Fasting))
[2024-07-09] MEDS: GADOBUTROL 65ML VIAL IV ONE (17:21)
[2024-07-09] MEDS: DAPTOmycin 450 MG in SYRINGE 0 ML IV SCH (18:14)
[2024-07-09] MEDS: ENOXAPARIN INJ 40 MG/0.4 ML SYR SQ SCH (21:57)
--- NOTE | 2024-07-10 07:30 | Magnetic Resonance Report ---
MR lower leg LT wo/w con HISTORY: Left lower leg swelling. r/o osteo TECHNIQUE: Multiplanar multisequence MRI of the left lower leg was performed both before and after th e intravenous administration of 8 cc of Gadavist contrast. COMPARISON STUDY: None. FINDINGS: There is normal marrow signal intensity seen throughout the left tibia. Small focus of jorge alberto ow edema within the mid shaft of the left fibula without abnormal T1 signal. This is best seen on cor onal image 12.. No abnormal enhancement within the left tibia or fibula to suggest an osteomyelitis a t this time. Diffuse subcutaneous and soft tissue edema throughout the left lower leg. There is mild skin thickening and enhancement most pronounced along the posterior lateral aspects of the mid to dis johan lower leg or there is suggestion of a skin ulceration/wound. This suggests a cellulitis. There is mild enhancement within the adjacent left peroneus muscles suggesting a mild nonspecific myositis. N o loculated fluid collections to suggest an abscess. Diffuse soft tissue edema within the left lower leg musculature. IMPRESSION: 1. No evidence for osteomyelitis within the left lower leg. Small focus of marrow edema without abnor mal T1 signal within the mid shaft of the left fibula. This is nonspecific. A low-grade osteitis is n ot excluded. 2. Subcutaneous and soft tissue edema within the left lower leg suggestive of a cellulitis. 3. No loculated fluid collections to suggest an abscess. 4. Skin ulceration/wound within the posterior lateral aspect of the mid to distal left lower leg. The re is mild enhancement within the adjacent left peroneus muscles which may represent a nonspecific my ositis. 4. Diffuse edema within the left lower leg musculature which is nonspecific but could be due to a conchita sitis or denervation injury. ACT 112: Negative or not required by law. Electronically signed by: López Champion M.D. 07/10/2024 7:28 AM
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
[2024-07-10 13:57] VITALS: BP 111/73; O2SAT 98
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
--- NOTE | 2024-07-10 15:49 | Operative Report ---
PG Post Operative Report Pre & Post Diagnosis Pre-Op diagnosis: Pressure ulcer of the left lower extremity Postop diagnosis: Pressure ulcer of left lower extremity measuring 7 cm x 4 cm I identified the patient and participated in the time-out.: Yes Procedure Excisional debridement of left lower extremity pressure ulcer measuring 7 cm x 4 cm down to the level of subcutaneous tissue Surgeon Jose Barth DO Repair Armature Winder Bernadette FAIRBANKS Estimated Blood Loss 1 Findings Consistent with Post-Op Diagnosis Specimens None Anesthesia Type None Complications none Indications 29-year-old quadriplegic with a pressure ulcer of his left lower extremity that required debridement Description of Procedure The patient was placed in the supine position. The left lower extremity wound was prepped and draped in the usual sterile fashion. A timeout was called. The procedure was verified as Excisional debridement of left lower extremity ulcer/w ound. The the left lower extremity wound was debrided of necrotic skin and subcutaneous tissue using a #15 blade scalpel until bleeding was encountered. Hemostasis was achieved using pressure. Hemostasis was complete. At this time the wound was dressed with Aquacel Ag and a sterile dressing was applied. The patient tolerated the procedure well. This represents an excisional debridement down to the level of subcutaneous tissue of 28 cm. I attest to the content of the Intraoperative Record and any orders documented therein. Any exceptions are noted below.
--- NOTE | 2024-07-11 09:35 | Surgery Progress Note ---
Date of Service July 11, 2024 Assessment & Plan (1) Wound of left lower extremity: Plan: POD 1 bedside debridement consult placed with wound care nurse to give recommendations, however if patient refuses to see wound care nurse then nursing may change LLE dressing daily, apply Aquacel to open area cut to form around wound and then cover with gauze, abd pad , kerlix. The patient will need to follow up outpatient with the wound care center or home nursing for wound care. General surgery will follow from the peripherally, call with questions/concerns. Pt seen and examined with Dr. Barth Admission and Anticipated Discharge Date Admission Date: June 25, 2024 Subjective no complaints this AM Review of Systems Constitutional: no fever and no chills Integumentary: + skin ulcer, + wounds and + erythema Neurologic: + paralysis Physical Exam Constitutional: comfortable; no acute distress Respiratory: normal respiratory effort and able to speak in complete sentences; no respiratory distress Skin: + wound (LLE ) Results & Data Vital Signs (Past 12 Hours) Vital Signs O2 Del Method 07/11/24 08:18 Room Air 07/10/24 22:27 Room Air PG Care Time/CCT Total # of Minutes Spent Total Time Spent with Patient: Total time spent is greater than 50% in coordination of care (as documented) at patient's floor/unit and/or counseling patient: Coding Level of Care Code 79645 Post Operative Follow-Up Diagnoses Wound of left lower extremity S81.802A
[2024-07-11] MEDS: HYDROmorphone INJ 0.5 MG/0.5 ML SYR IV STA (11:15)
[2024-07-11] MEDS: ACETAMINOPHEN 500 MG TAB PO SCH (11:16)
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
--- NOTE | 2024-07-11 14:00 | Communication Note ---
Date of Service: July 11, 2024 Spent 20 minutes discussing antibiotics with patient. Patient refusing oral antibiotics. Agreed to labs to continue IV abx. Will discontinue doxy and resume dapto
[2024-07-11] MEDS: FUROSEMIDE INJ 20 MG/2 ML VIAL IV ONE (14:36)
[2024-07-11] MEDS: DOXYCYCLINE HYCLATE 100 MG CAP PO SCH (14:38)
[2024-07-11 14:54] LABS: Hemoglobin 9.6 g/dl (14.0-18.0); Mean Corpuscular Hgb Conc 29.1 g/dL (32.0-36.0); Mean Corpuscular Volume 75.5 fL (80.0-100.0); Mean Platelet Volume 8.4 fL (9.4-12.4); Platelet Count 302 K/uL (130-400); RDW Coefficient of Variation 18.2 % (11.5-14.5); RDW Standard Deviation 50.1 fL (36.4-46.3); Red Blood Count 4.37 M/uL (4.70-6.10); White Blood Count 7.62 K/ul (4.8-10.8)
[2024-07-11] MEDS ORDERED: Nursing to Pharmacy Communication SCH (15:30)
[2024-07-11] MEDS: DAPTOmycin 300 MG in SYRINGE 0 ML IV SCH (15:48)
[2024-07-11] MEDS: cefTRIAXone SODIUM 2,000 MG/50 ML BAG IV SCH (15:48)
[2024-07-11] MEDS: COLLAGENASE OINT 30 GM TUBE EXT SCH (15:50)
[2024-07-11 16:40] LABS: Anion Gap 9 (3-11); Calcium 9.1 mg/dl (8.6-10.3); Carbon Dioxide 25 mmol/L (21-32); Chloride 105 mmol/L (98-107); Sodium 139 mmol/L (136-145)
[2024-07-11 16:45] LABS: BUN Creatinine Ratio 32.5 (10-20); Blood Urea Nitrogen 13 mg/dl (6-23); Creatine Kinase 34 U/L (30-223); Creatinine Clr Calc Pharmacy 278.8 ml/min; Est GFR (African American) > 150.0 ml/min; Est GFR (Non-African American) > 150.0 ml/min; Glucose 90 mg/dl (70-99(Fasting))
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
[2024-07-13 10:33] LABS: Anion Gap 7 (3-11); BUN Creatinine Ratio 30.8 (10-20); Blood Urea Nitrogen 12 mg/dl (6-23); Calcium 9.1 mg/dl (8.6-10.3); Carbon Dioxide 28 mmol/L (21-32); Chloride 102 mmol/L (98-107); Est GFR (African American) > 150.0 ml/min; Est GFR (Non-African American) > 150.0 ml/min; Glucose 93 mg/dl (70-99(Fasting)); Sodium 137 mmol/L (136-145)
[2024-07-13] MEDS: FUROSEMIDE INJ 20 MG/2 ML VIAL IV ONE (11:10)
[2024-07-14] MEDS: FUROSEMIDE INJ 20 MG/2 ML VIAL IV ONE (09:02)
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
[2024-07-14] MEDS: NYSTATIN POWDER 15GM BTL EXT SCH (10:41)
[2024-07-14] MEDS: POTASSIUM CHLORIDE / WTR 10 MEQ/100 ML PLCT IV SCH (11:42)
--- NOTE | 2024-07-14 12:24 | XRay Report ---
XR KUB/Abdomen 1 view CLINICAL HISTORY: abdominal distention TECHNIQUE: 1 view of the abdomen was obtained. Comparison: Comparison is made to CT abdomen pelvis 06/24/2024 FINDINGS: Lung bases are unremarkable. The osseous structures are grossly unremarkable. The bowel gas pattern i s nonobstructive. A moderate amount of stool is noted within the large bowel. IMPRESSION: Nonobstructive bowel gas pattern. ACT 112: Negative or not required by law. Electronically signed by: Mike Garcia M.D. 07/14/2024 12:23 PM
[2024-07-14] MEDS: HYDROCORTISONE 2.5% OINT 20 GM TUBE EXT PRN (12:43)
[2024-07-14] MEDS: FUROSEMIDE INJ 20 MG/2 ML VIAL IV SCH (13:46)
--- NOTE | 2024-07-14 20:01 | Ultrasound Report ---
US scrotum/testicle CLINICAL HISTORY: swelling TECHNIQUE: Real-time sonographic images of the scrotal contents were obtained. Comparison: Comparison is made to CT abdomen pelvis 06/24/2024 FINDINGS: Exam is limited by patient tolerance. The right testicle measures 3.1 x 2.4 x 2.9 cm. The left testic le measures 3.9 x 3.0 x 2.5 cm. The testes are uniform in echogenicity bilaterally. Doppler flow is s een bilaterally. Right epididymis is normal, left epididymis is not visualized. There are no hydrocel es. No varicoceles were seen. Scrotal edema is seen. IMPRESSION: Prominent scrotal edema. No evidence of testicular torsion or other acute abnormality. ACT 112: Negative or not required by law. Electronically signed by: Mike Garcia M.D. 07/14/2024 7:59 PM
[2024-07-14 21:47] VITALS: RESP 14; TEMP 98.6
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
[2024-07-15 17:53] LABS: Anion Gap 8 (3-11); Calcium 8.9 mg/dl (8.6-10.3); Carbon Dioxide 31 mmol/L (21-32); Chloride 98 mmol/L (98-107); Potassium 3.9 mmol/L (3.5-5.1); Sodium 137 mmol/L (136-145)
[2024-07-15 17:58] LABS: BUN Creatinine Ratio 32.4 (10-20); Blood Urea Nitrogen 11 mg/dl (6-23); Creatinine Clr Calc Pharmacy 356.6 ml/min; Est GFR (African American) > 150.0 ml/min; Est GFR (Non-African American) > 150.0 ml/min; Glucose 105 mg/dl (70-99(Fasting))
[2024-07-15] MEDS: CEFEPIME 2,000 MG in SYRINGE 0 ML IV SCH (18:00)
[2024-07-16] MEDS: FUROSEMIDE INJ 20 MG/2 ML VIAL IV ONE (08:12)
[2024-07-16] MEDS: POTASSIUM CHLORIDE / WTR 10 MEQ/100 ML PLCT IV ONE (08:21)
--- NOTE | 2024-07-16 10:22 | Orthopedic Progress Note ---
Date of Service July 16, 2024 Assessment & Plan (1) Stiffness of right hip joint: Plan: The patient was educated regarding today's findings. Conservative care measures were discussed. Possibility of scoliotic curvature limiting his spinal range of motion was considered. Possibility of heterotopic ossification around the hips was discussed. The patient inquired about improving his flexion of his knees. Given that he has had no mobility of the knees for 3 years, and there is likely heavy scarring of the capsules, I do not think there is much improvement to be gained for the knees. Patient declined x-ray evaluation of his hips and spine. Discussed with patient that there is no need for any acute orthopaedic surgery. He is a complicated patient with complicated orthopaedic problems from the [facility]. Recommend he follow-up as an outpatient at tertiary care facility with a specialist in deformities after paraplegia, preferably back at [facility] given his recent surgery there and the fact that they have treated him in the past. Orthopaedics will sign off. Does not need outpatient follow-up in our office. Admission and Anticipated Discharge Date Admission Date: June 25, 2024 Subjective This 29-year-old paraplegic patient is seen today for follow-up of right hip pain and swelling. He states that he is only able to control his right lower extremity. He states that he has had 2 previous surgeries on it after his injuries which she states the first was not beneficial but the second did help him slightly. He states that over the past several months he has regressed. He has full passive movement of his left hip but his right hip is significantly stiff. Patient has no other complaints at this time Review of Systems Review of Systems: All systems reviewed & are unremarkable except as noted in Subjective Physical Exam Physical Exam: Bilateral Hips: Intact passive motion of both hips. Right hip has flexion to around 60 degrees. External rotation of around 20 degrees. Knee flexion is limited of around 30 degrees. Left hip evaluation reveals flexion to around 80 degrees. External rotation of 30 to 40 degrees. Knee flexion also limited to around 30 degrees. The patient has absence of sensation on both lower extremities. He describes a burning sensation in his thighs but does not have sensation to touch. Peripheral pulses are 2+. Skin is normal in appearance with no rashes. Healing surgical incisions are present over the anterior surface of both hips. Scars are healing well. Colostomy opening is present on the left abdomen. Suprapubic catheter is present. Results & Data Vital Signs (Past 12 Hours) Vital Signs O2 Del Method 07/16/24 02:05 Room Air Diagnostic Findings Laboratory Results WBC 7.62 K/ul (4.8-10.8) 07/11/24 14:21 RBC 4.37 M/uL (4.70-6.10) L 07/11/24 14:21 Hgb 9.6 g/dl (14.0-18.0) L 07/11/24 14:21 Hct 33.0 % (42.0-52.0) L 07/11/24 14:21 MCV 75.5 fL (80.0-100.0) L 07/11/24 14:21 MCH 22.0 pg (25.0-34.0) L 07/11/24 14:21 MCHC 29.1 g/dL (32.0-36.0) L 07/11/24 14:21 RDW Std Deviation 50.1 fL (36.4-46.3) H 07/11/24 14:21 RDW Coeff of Nuvia 18.2 % (11.5-14.5) H 07/11/24 14:21 Plt Count 302 K/uL (130-400) 07/11/24 14:21 MPV 8.4 fL (9.4-12.4) L 07/11/24 14:21 Immature Gran % (Auto) 0.3 % 07/09/24 15:05 Neut % (Auto) 64.3 % 07/09/24 15:05 Lymph % (Auto) 21.5 % 07/09/24 15:05 Nuckolls % (Auto) 9.9 % 07/09/24 15:05 Eos % (Auto) 3.6 % 07/09/24 15:05 Baso % (Auto) 0.4 % 07/09/24 15:05 Reticulocyte % (Auto) 1.35 % (0.50-2.00) 06/24/24 19:47 Neut # (Auto) 5.00 K/uL (1.40-6.50) 07/09/24 15:05 Lymph # (Auto) 1.67 K/uL (1.20-3.40) 07/09/24 15:05 Nuckolls # (Auto) 0.77 K/uL (0.11-0.59) H 07/09/24 15:05 Eos # (Auto) 0.28 K/uL (0.00-0.50) 07/09/24 15:05 Baso # (Auto) 0.03 K/uL (0.00-0.20) 07/09/24 15:05 Reticulocyte # 0.060 10^6/uL (0.020-0.100) 06/24/24 19:47 Immature Gran # (Auto) 0.02 K/uL (0.01-0.20) 07/09/24 15:05 Sodium 137 mmol/L (136-145) 07/15/24 17:24 Potassium 3.9 mmol/L (3.5-5.1) 07/15/24 17:24 Chloride 98 mmol/L (98-107) 07/15/24 17:24 Carbon Dioxide 31 mmol/L (21-32) 07/15/24 17:24 Anion Gap 8 (3-11) 07/15/24 17:24 BUN 11 mg/dl (6-23) 07/15/24 17:24 Creatinine 0.34 mg/dl (0.6-1.4) L 07/15/24 17:24 Est Cr Clr Drug Dosing 356.6 ml/min 07/15/24 17:24 Est GFR ( Amer) > 150.0 ml/min 07/15/24 17:24 Est GFR (Non-Af Amer) > 150.0 ml/min 07/15/24 17:24 BUN/Creatinine Ratio 32.4 (10-20) H 07/15/24 17:24 Glucose 105 mg/dl (70-99(Fasting)) H 07/15/24 17:24 Estimat Average Glucose 82 mg/dl 06/24/24 19:47 Hemoglobin A1c 4.5 % (4.5-5.6) 06/24/24 19:47 Lactate 1.2 mmol/L (0.4-2.0) 06/24/24 20:48 Calcium 8.9 mg/dl (8.6-10.3) 07/15/24 17:24 Phosphorus 3.9 mg/dl (2.5-4.9) 07/08/24 14:25 Magnesium 1.9 mg/dl (1.7-2.4) 07/08/24 14:25 Iron 28 mcg/dl (35-175) L 06/24/24 19:47 Transferrin 289 mg/dl (200-360) 06/24/24 19:47 Ferritin 20.6 ng/ml (8-388) 06/24/24 19:47 Total Bilirubin 0.3 mg/dl (0.2-1.0) 07/08/24 14:25 AST 12 U/L (13-39) L 07/08/24 14:25 ALT 8 U/L (7-52) 07/08/24 14:25 Alkaline Phosphatase 110 U/L (34-104) H 07/08/24 14:25 Total Creatine Kinase 34 U/L (30-223) 07/11/24 14:21 Troponin I High Sens < 2.3 pg/ml (0-20) 06/24/24 19:47 Total Protein 7.7 gm/dl (6.0-8.3) 07/08/24 14:25 Albumin 3.9 gm/dl (3.4-5.0) 07/08/24 14:25 Globulin 3.8 gm/dl (2.5-4.0) 07/08/24 14:25 Albumin/Globulin Ratio 1.0 (0.9-2) 07/08/24 14:25 Lipase 23 U/L (11-82) 06/24/24 19:47 Vitamin B12 302 pg/ml (180-914) 06/24/24 20:49 Folate 8.25 ng/ml (>5.38) 06/24/24 20:49 Procalcitonin < 0.02 ng/ml (0-0.5) 06/24/24 19:47 Urine Color Yellow 06/24/24 22:55 Urine Appearance Cloudy (Clear) A 06/24/24 22:55 Urine pH 8.5 (4.5-7.5) H 06/24/24 22:55 Ur Specific Savage > 1.045 (1.000-1.030) H 06/24/24 22:55 Urine Protein 1+ (Negative) H 06/24/24 22:55 Urine Glucose (UA) Negative (Negative) 06/24/24 22:55 Urine Ketones Negative (Negative) 06/24/24 22:55 Urine Blood 1+ (Negative) H 06/24/24 22:55 Urine Nitrite Positive (Negative) A 06/24/24 22:55 Urine Bilirubin Negative (Negative) 06/24/24 22:55 Urine Urobilinogen Negative (Negative) 06/24/24 22:55 Ur Leukocyte Esterase 2+ (Negative) H 06/24/24 22:55 Urine WBC (Auto) >50 /hpf (0-5) H 06/24/24 22:55 Urine RBC (Auto) >20 /hpf (0-2) H 06/24/24 22:55 U Hyaline Cast (Auto) 0-2 /lpf (0-2) 06/24/24 22:55 U Epithel Cells (Auto) 0-2 /hpf (0-2) 06/24/24 22:55 Urine Bacteria (Auto) 2+ (None Seen) H 06/24/24 22:55 Impressions Abdomen/Pelvis CT 06/24/24 21:52 Exam(s): CT ABDOMEN + PELVIS With Contrast IV Amt: 92 cc opti 320 EXAM: CT Abdomen and Pelvis With Intravenous Contrast CLINICAL HISTORY: Abdominal Pain and hematuria. TECHNIQUE: Axial computed tomography images of the abdomen and pelvis with intravenous contrast. CTDI is 23 mGy and DLP is 1267 mGy-cm. Automated exposure control was utilized for the study. A dose lowering technique was utilized adhering to the principles of ALARA. CONTRAST: Patient received 92 cc opti 320 of IV contrast COMPARISON: No relevant prior studies available. FINDINGS: Lung bases: Unremarkable. No mass. No consolidation. ABDOMEN: Liver: Unremarkable. No mass. Gallbladder and bile ducts: Cholelithiasis. No ductal dilation. Pancreas: Unremarkable. No mass. No ductal dilation. Spleen: Unremarkable. No splenomegaly. Adrenals: Unremarkable. No mass. Kidneys and ureters: Unremarkable. No solid mass. No hydronephrosis. Stomach and bowel: There is small inflammatory stranding of the left lower quadrant colostomy. No obstruction. No mucosal thickening. PELVIS: Appendix: No findings to suggest acute appendicitis. Bladder: Unremarkable. No mass. Reproductive: Unremarkable as visualized. ABDOMEN and PELVIS: Intraperitoneal space: Unremarkable. No free air. No significant fluid collection. Bones/joints: No acute fracture. No dislocation. Soft tissues: There is marked nonspecific subcutaneous edema and scarring most prominent of the flanks. Small fat-containing umbilical hernia. Vasculature: Unremarkable. No abdominal aortic aneurysm. Lymph nodes: Unremarkable. No enlarged lymph nodes. IMPRESSION: 1. There is small inflammatory stranding of the left lower quadrant colostomy. This may be infectious or inflammatory. 2. Cholelithiasis. 3. There is marked nonspecific subcutaneous edema and scarring most prominent of the flanks Electronically signed by: Hazel Amador MD 06/25/24 00:17 AM Venous Doppler Study 06/25/24 01:39 Exam(s): US VENOUS BILATERAL LOWER EXTREMITIES EXAM: US Duplex Bilateral Lower Extremities Veins CLINICAL HISTORY: Reason for exam: leg swelling. TECHNIQUE: Real-time duplex ultrasound scan of the bilateral lower extremity veins integrating B-mode two-dimensional vascular structure, Doppler spectral analysis, color flow Doppler imaging and compression. COMPARISON: No relevant prior studies available. FINDINGS: Right deep veins: Unremarkable. No DVT in the right common femoral, femoral, proximal deep femoral or popliteal veins. The veins demonstrate normal color flow, are normally compressible, with normal phasic flow and/or augmentation response. Right superficial veins: Unremarkable. No thrombus in the visualized right great saphenous vein. Left deep veins: Unremarkable. No DVT in the left common femoral, femoral, proximal deep femoral or popliteal veins. The veins demonstrate normal color flow, are normally compressible, with normal phasic flow and/or augmentation response. Left superficial veins: Unremarkable. No thrombus in the visualized left great saphenous vein. Soft tissues: Edema at the bilateral calves. IMPRESSION: 1. Normal bilateral lower extremity duplex venous ultrasound. 2. Edema at the bilateral calves. Electronically signed by: Meng Amador MD 06/25/24 03:54 AM Chest X-Ray 06/28/24 11:36 XR chest 1V portable CLINICAL HISTORY: Cough. Chest pain. COMPARISON STUDY: Chest radiograph June 24, 2024. FINDINGS: Lung volumes are normal. Lungs are clear. Surgical suture line projects over the lateral right lower lung. There is no pneumothorax or pleural effusion. Cardiac size is normal. Mediastinal contours are normal. There is no evidence for pulmonary edema. IMPRESSION: No acute cardiopulmonary findings. ACT 112: Negative or not required by law. Electronically signed by: Alex Almonte M.D. 06/28/2024 12:49 PM Lower Extremity MRI 07/09/24 16:03 MR lower leg LT wo/w con HISTORY: Left lower leg swelling. r/o osteo TECHNIQUE: Multiplanar multisequence MRI of the left lower leg was performed both before and after the intravenous administration of 8 cc of Gadavist contrast. COMPARISON STUDY: None. FINDINGS: There is normal marrow signal intensity seen throughout the left tibia. Small focus of marrow edema within the mid shaft of the left fibula without abnormal T1 signal. This is best seen on coronal image 12.. No abnormal enhancement within the left tibia or fibula to suggest an osteomyelitis at this time. Diffuse subcutaneous and soft tissue edema throughout the left lower leg. There is mild skin thickening and enhancement most pronounced along the posterior lateral aspects of the mid to distal lower leg or there is suggestion of a skin ulceration/wound. This suggests a cellulitis. There is mild enhancement within the adjacent left peroneus muscles suggesting a mild nonspecific myositis. No loculated fluid collections to suggest an abscess. Diffuse soft tissue edema within the left lower leg musculature. IMPRESSION: 1. No evidence for osteomyelitis within the left lower leg. Small focus of marrow edema without abnormal T1 signal within the mid shaft of the left fibula. This is nonspecific. A low-grade osteitis is not excluded. 2. Subcutaneous and soft tissue edema within the left lower leg suggestive of a cellulitis. 3. No loculated fluid collections to suggest an abscess. 4. Skin ulceration/wound within the posterior lateral aspect of the mid to distal left lower leg. There is mild enhancement within the adjacent left peroneus muscles which may represent a nonspecific myositis. 4. Diffuse edema within the left lower leg musculature which is nonspecific but could be due to a myositis or denervation injury. ACT 112: Negative or not required by law. Electronically signed by: López Champion M.D. 07/10/2024 7:28 AM KUB X-Ray 07/14/24 10:50 XR KUB/Abdomen 1 view CLINICAL HISTORY: abdominal distention TECHNIQUE: 1 view of the abdomen was obtained. Comparison: Comparison is made to CT abdomen pelvis 06/24/2024 FINDINGS: Lung bases are unremarkable. The osseous structures are grossly unremarkable. The bowel gas pattern is nonobstructive. A moderate amount of stool is noted within the large bowel. IMPRESSION: Nonobstructive bowel gas pattern. ACT 112: Negative or not required by law. Electronically signed by: Mike Garcia M.D. 07/14/2024 12:23 PM Scrotum Ultrasound 07/14/24 14:18 US scrotum/testicle CLINICAL HISTORY: swelling TECHNIQUE: Real-time sonographic images of the scrotal contents were obtained. Comparison: Comparison is made to CT abdomen pelvis 06/24/2024 FINDINGS: Exam is limited by patient tolerance. The right testicle measures 3.1 x 2.4 x 2.9 cm. The left testicle measures 3.9 x 3.0 x 2.5 cm. The testes are uniform in echogenicity bilaterally. Doppler flow is seen bilaterally. Right epididymis is normal, left epididymis is not visualized. There are no hydroceles. No varicoce les were seen. Scrotal edema is seen. IMPRESSION: Prominent scrotal edema. No evidence of testicular torsion or other acute abnormality. ACT 112: Negative or not required by law. Electronically signed by: Mike Garcia M.D. 07/14/2024 7:59 PM
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
[2024-07-16] MEDS: ACETAMINOPHEN 500 MG TAB PO PRN (22:15)
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
[2024-07-17] MEDS: ADVANCED PROBIOTIC 625 MG CAPSULE PO SCH (18:36)
[2024-07-18] MEDS: DOXYCYCLINE HYCLATE 100 MG CAP PO SCH (11:52)
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
[2024-07-19 14:40] VITALS: PULSE 79
--- NOTE | 2024-07-20 08:26 | Coding Query ---
PRESSURE ULCER DOCUMENTATION To promote full compliance with coding requirements relating to patient care, physician participation is requested in all cases of director style uncertainty. Please assist us with the question(s) below: Please specify the known or suspected type by placing an "X" within the parenthesis (x). A pressure ulcer of the ([employer] INSERT SITE) Left calf . Pt had excisional debridement of eschar. If possible, please check the box that provides the specific stage of the pressure ulcer ( ) Stage I ( ) Stage II (x ) Stage III ( ) Stage IV ( ) Unstageable Was the pressure ulcer present on admission? Please check the appropriate box for the pressure ulcer: (x) Present on admission ( ) Not present on admission ( ) Unable to be clinically determined Thank you Floyd ROSALES
== END 2024-07-19 15:54 | disposition home or self-care (01) | DRG 673 ==
LOC: EDBD → ED 19:19 → EDINP 06-25 00:49 → SUATTDRO 06-25 00:49 → 3E 06-25 01:15

== ENCOUNTER 2025-02-19 19:49 | Inpatient (IN) ==
[2025-02-19] MEDS ORDERED: VANCOMYCIN CONSULT ACTIVE PRN (21:44)
[2025-02-19 21:45] LABS: Appearance Urine Cloudy (Clear); Bacteria Urine Automated 3+ (None Seen); Bilirubin Urine Negative (Negative); Blood Urine Trace (Negative); Color Urine Yellow; Epithelial Cell Urine Auto 0-2 /hpf (0-2); Glucose Urine UA Negative (Negative); Ketones Urine Trace (Negative); Leukocyte Esterase Urine 3+ (Negative); Nitrite Urine Positive (Negative); Protein Urine 1+ (Negative); Specific Gravity Urine 1.022 (1.000-1.030); Urobilinogen Urine Negative (Negative); WBC Urine Automated >50 /hpf (0-5)
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
[2025-02-19] MEDS: SODIUM CHLORIDE 0.9% 1,000 ML IV ONE (22:30)
[2025-02-19 22:31] LABS: Basophils # (auto) 0.05 K/uL (0.00-0.20); Basophils % (auto) 0.3 %; Eosinophils # (auto) 0.07 K/uL (0.00-0.50); Eosinophils % (auto) 0.4 %; Hematocrit (blood only) 29.8 % (42.0-52.0); Hemoglobin 8.8 g/dl (14.0-18.0); Immature Granulocytes # (auto) 0.13 K/uL (0.01-0.20); Immature Granulocytes % (auto) 0.7 %; Lymphocytes # (auto) 1.97 K/uL (1.20-3.40); Lymphocytes % (auto) 10.8 %; Mean Corpuscular Hemoglobin 21.3 pg (25.0-34.0); Mean Corpuscular Hgb Conc 29.5 g/dL (32.0-36.0); Mean Corpuscular Volume 72.2 fL (80.0-100.0); Mean Platelet Volume 8.1 fL (9.4-12.4); Monocytes # (auto) 1.42 K/uL (0.11-0.59); Monocytes % (auto) 7.8 %; Neutrophils # (auto) 14.67 K/uL (1.40-6.50); Nucleated RBC # (auto) 0.02 K/uL (0.00-0.12); Nucleated RBC % (auto) 0.1 %; Platelet Count 457 K/uL (130-400); RDW Coefficient of Variation 17.8 % (11.5-14.5); RDW Standard Deviation 44.4 fL (36.4-46.3); Red Blood Count 4.13 M/uL (4.70-6.10); White Blood Count 18.31 K/ul (4.8-10.8)
[2025-02-19] MEDS: ACETAMINOPHEN 1,000 MG/100 ML VIAL IV STA (22:38)
[2025-02-19 22:44] LABS: Alanine Aminotransferase 18 U/L (7-52); Albumin Globulin Ratio 0.8 (0.9-2); Albumin Level 3.3 gm/dl (3.4-5.0); Alkaline Phosphatase 148 U/L (34-104); Anion Gap 6 (3-11); Aspartate Aminotransferase 21 U/L (13-39); BUN Creatinine Ratio 16.7 (10-20); Bilirubin,Total 0.5 mg/dl (0.2-1.0); Blood Urea Nitrogen 8 mg/dl (6-23); Calcium 8.6 mg/dl (8.6-10.3); Carbon Dioxide 33 mmol/L (21-32); Chloride 97 mmol/L (98-107); Creatine Kinase 41 U/L (30-223); Creatinine Clr Calc Pharmacy 280.9 ml/min; Globulin 4.3 gm/dl (2.5-4.0); Glucose 110 mg/dl (70-99(Fasting)); Magnesium 2.1 mg/dl (1.7-2.4); Potassium 3.7 mmol/L (3.5-5.1); Sodium 136 mmol/L (136-145); Total Protein 7.6 gm/dl (6.0-8.3)
[2025-02-19 22:51] LABS: Troponin I High Sensitivity < 2.3 pg/ml (0-20)
--- NOTE | 2025-02-19 22:52 | Emergency Department Note ---
ED Visit Note I was consulted by the Advanced Practice Provider. I personally made/approved the management plan and take responsibility for the patient management. This includes the aspects of: -History/Physical -MDM
[2025-02-19] MEDS: OPTIRAY 320 125ml IV ONE (23:41)
[2025-02-20] MEDS: PIPERACILLIN/TAZOBACTAM 4.5 GM/100 ML BAG IV ONE (00:32)
--- NOTE | 2025-02-20 00:34 | CT Scan Report ---
Exam(s): CTA CHEST IV Amt: 118 ml optiray 320 EXAM: CT Angiography Chest With Intravenous Contrast CLINICAL HISTORY: Reason for exam: PE. TECHNIQUE: Axial computed tomographic angiography images of the chest with intravenous contrast. CTDI is 27.99 mGy and DLP is 2749.12 mGy-cm. Automated exposure control was utilized for the study. A dose lowering technique was utilized adhering to the principles of ALARA. MIP reconstructed images were created and reviewed. COMPARISON: No relevant prior studies available. FINDINGS: Artifact degrades image quality limiting the exam. Pulmonary arteries: No pulmonary embolism is seen. There is dilatation of the main pulmonary artery. Aorta: No thoracic aortic aneurysm or dissection. Lungs: There is scarring and/or atelectasis noted in the left lung. There is a calcification noted in the left lung.. Pleural space: No significant effusion. No pneumothorax. Heart: Heart is normal in size.. Bones/joints: There is a mild scoliosis noted. Soft tissues: Unremarkable. Lymph nodes: No enlarged lymph nodes. IMPRESSION: Limited exam. No pulmonary embolism is seen. There is dilatation of the main pulmonary artery. This can be seen with pulmonary hypertension. There is scarring and/or atelectasis noted in the left lung. There is evidence for old granulomatous disease. Electronically signed by: Job Davidson MD 02/20/25 00:33 AM
--- NOTE | 2025-02-20 00:43 | CT Scan Report ---
Exam(s): CT ABDOMEN + PELVIS With Contrast IV Amt: 118 ml optiray 320 EXAM: CT Abdomen and Pelvis With Intravenous Contrast CLINICAL HISTORY: Reason for exam: buttock infx, abd pain, fever, parapl.. TECHNIQUE: Axial computed tomography images of the abdomen and pelvis with intravenous contrast. CTDI is 28.14 mGy and DLP is 2749.12 mGy-cm. Automated exposure control was utilized for the study. A dose lowering technique was utilized adhering to the principles of ALARA. CONTRAST: Patient received 118 ml optiray 320 of IV contrast COMPARISON: 06/24/2024. FINDINGS: . ABDOMEN: Liver: The liver is enlarged and of diffuse decreased attenuation.. Gallbladder and bile ducts: The gallbladder is distended containing calculi. No ductal dilation. Pancreas: No mass. No ductal dilation. Spleen: No splenomegaly. Adrenals: No mass. Kidneys and ureters: . No solid mass. No hydronephrosis. Stomach and bowel: There is air and fluid within the stomach. The colon is distended containing air and stool. A colostomy site is noted left lower quadrant. There are mildly distended loops of small bowel containing air and fluid. The overall bowel gas pattern may represent an ileus.. PELVIS: Appendix: No findings to suggest acute appendicitis. Bladder: A suprapubic catheter is noted within the urinary bladder.. Reproductive: Unremarkable as visualized. ABDOMEN and PELVIS: Intraperitoneal space: No free air. No significant fluid collection. Bones/joints: There are marked erosive changes involving the proximal portions of the femurs. There are bilateral dislocations. There are hypertrophic and erosive changes involving the acetabulum.. Soft tissues: There is a decubitus ulcer involving the left buttocks extending down into the region of the ischium. There is a decubitus ulcer involving the right buttocks extending to the ischium. No fluid collections are seen. There are inflammatory changes noted involving the subcutaneous fat of the abdominal goldsmith laterally as well as the upper portions of the legs. Vasculature: No abdominal aortic aneurysm. Lymph nodes: No enlarged lymph nodes. IMPRESSION: There are bilateral decubitus ulcers involving the buttocks. No fluid collection is noted to suggest abscess formation. Again noted, there are marked erosive changes involving the proximal portions of the femurs. There are bilateral dislocations. There are hypertrophic and erosive changes involving the acetabulum. Findings may be related to chronic osteomyelitis. There are inflammatory changes noted involving the subcutaneous fat of the abdominal goldsmith laterally as well as the upper portions of the legs. Liver is enlarged and of diffuse decreased attenuation which may be due to fatty infiltration. The gallbladder is distended containing calculi. Electronically signed by: Job Davidson MD 02/20/25 00:42 AM
[2025-02-20] MEDS: VANCOMYCIN HCL 2,250 MG in SODIUM CHLORIDE 0.9% 500 ML IV ONE (00:54)
[2025-02-20 03:08] LABS: Amphetamines+Metham, Urine Neg (Neg); Barbiturates, Urine Neg (Neg); Benzodiazepine, Urine Neg (Neg); Cocaine, Urine Neg (Neg); Fentanyl, Urine Pos (Neg); MDMA (Ecstacy), Urine Pos (Neg); Marijuana, Urine Pos (Neg); Methadone, Urine Neg (Neg); Opiate, Urine Pos (Neg); Phencyclidine, Urine Neg (Neg)
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
[2025-02-20] MEDS ORDERED: ACETAMINOPHEN 325 MG TAB PO PRN (06:05)
[2025-02-20] MEDS ORDERED: NITROGLYCERIN SL 0.4 MG/TAB TAB SL PRN (06:05)
[2025-02-20] MEDS ORDERED: POLYETHYLENE (MIRALAX) 17 GM PACK PO PRN (06:05)
[2025-02-20] MEDS: PIPERACILLIN/TAZOBACTAM 4.5 GM/100 ML BAG IV SCH (06:42)
[2025-02-20] MEDS: ENOXAPARIN INJ 40 MG/0.4 ML SYR SQ SCH (06:42)
--- NOTE | 2025-02-20 09:18 | Ultrasound Report ---
BILATERAL LOWER EXTREMITY VENOUS DOPPLER HISTORY: b/l lower ext edema. DVT? COMPARISON STUDY: 06/25/2024 FINDINGS: The patient was unable to move the left leg due to pain, so the left popliteal region was n ot evaluated. No evidence of DVT seen in bilateral lower extremities. IMPRESSION: No DVT seen. ACT 112: Negative or not required by law. Electronically signed by: Noam Chairez M.D. 02/20/2025 9:17 AM
[2025-02-20] MEDS: FUROSEMIDE INJ 20 MG/2 ML VIAL IV SCH (10:19)
--- NOTE | 2025-02-20 10:45 | Electrocardiogram Report ---
Test Reason : Blood Pressure : */* mmHG Vent. Rate : 107 BPM Atrial Rate : 107 BPM P-R Int : 138 ms QRS Dur : 88 ms QT Int : 368 ms P-R-T Axes : 79 80 27 degrees QTcB Int : 491 ms Sinus tachycardia T wave abnormality, consider anterolateral ischemia Abnormal ECG No previous ECGs available Confirmed by Fletcher Moore ([id number]) on 02/20/2025 10:45:17 AM Referred By: REFERRED SELF Confirmed By: Fletcher Moore
[2025-02-20] MEDS: VANCOMYCIN HCL 1,500 MG in SODIUM CHLORIDE 0.9% 500 ML IV SCH (11:37)
--- NOTE | 2025-02-20 12:58 | Pharmacy Report ---
Pharmacy PK ABX Note - Date of Service February 20, 2025 - Assessment and Plan Assessment 29 year old M receiving vancomcyin/zosyn for treatment of SST/possible UTI. Pertinent microbiologic data includes: blood cultures, wound cultures, urine culture pending. 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 Patient is quadriplegic with colostomy/suprapubic catheter, presented with worsening wounds on buttock/lower extremity. Will obtain early level to assist with dosing d/t overestimation of crcl with low SCr. Plan Vancomycin * Loading dose: 2500 mg IV x 1 * Maintenance dose: 1500 mg IV every 8 hours * Regimen is predicted to achieve target AUC/JOEL of 400-600 mg/L.hr * Random level ordered for 02/21 @ 1000 Pharmacy will continue to follow and will adjust dose/frequency as necessary. Thank you. Pharmacy has transitioned to AUC monitoring for vancomycin. AUC/JOEL is the preferred PK/PD target and is associated with decreased risk of nephrotoxicity compared to traditional trough targets.
--- NOTE | 2025-02-20 16:58 | Communication Note ---
Date of Service: February 20, 2025 Seen resting in bed, sleeping but easily awakened States he is having some pain over the ulcer sites Denies abdominal pain, nausea or vomiting no other new symptoms Clear breath sounds bilaterally Normal rate regular rhythm Abdomen nondistended, soft, mild suprapubic tenderness Declines examination of the back Grade 2 bilateral lower extremity edema, with blisters, seepage, wounds bilateral heels with ulcers, scabbing Multiple decubitus ulcers (Possible, Suspected, Likely) Bilateral buttock stage IV pressure ulcers POA Left calf, posterior lateral hip, upper posterior thigh, gluteal fold, lower leg venous ulcer left posterior heel Right posterior heel ulcer - Please refer to images care of wound care nurse - Check CT abdomen pelvis to assess for osteomyelitis of the sacrum, buttock ulcers Start with x-rays of bilateral feet to also rule out osteomyelitis - Follow-up cultures Continue vancomycin plus Zosyn Bilateral lower extremity edema Continue Lasix 20 mg IV twice daily Possible catheter associated UTI Suprapubic catheter in place Follow-up cultures Continue IV antibiotics plan of care discussed with patient in detail and at length all questions answered he is understanding, agreeable, comfortable with the plan of care Other diagnosis and plan of care as per Dr. Mccoy's notes Eusebio Castillo MD
--- NOTE | 2025-02-20 17:59 | XRay Report ---
Clinical History: Pain. 3 views of the right foot are submitted for review. Findings: This examination is limited by suboptimal positioning. No fracture or dislocation is seen. There is severe osteopenia. There is mild osteoarthritis of the tarsometatarsal joints. No other osseous abnormality is identified. There are no radiopaque foreign bodies. Impression: 1. Severe osteopenia 2. Mild osteoarthritis Electronically signed by Michael Lazaro 02-20-2025 5:58 PM
--- NOTE | 2025-02-20 18:00 | XRay Report ---
Clinical History: Pain. 2 views of the foot are submitted for review. Findings: No fracture or dislocation is seen. There is severe osteopenia. There is mild osteoarthritis of the tarsometatarsal joints. No other osseous abnormality is identified. There are no radiopaque foreign bodies. Impression: 1. Severe osteopenia 2. Mild osteoarthritis Electronically signed by Michael Lazaro 02-20-2025 5:59 PM
[2025-02-20] MEDS: oxyCODONE HCL IR 5 MG TAB (IMMEDIATE RELEASE) PO PRN (20:42)
[2025-02-20] MEDS: QUEtiapine FUMARATE 100 MG TABLET PO SCH (20:57)
[2025-02-21 10:37] LABS: Basophils # (auto) 0.05 K/uL (0.00-0.20); Basophils % (auto) 0.6 %; Eosinophils # (auto) 0.84 K/uL (0.00-0.50); Eosinophils % (auto) 9.5 %; Hematocrit (blood only) 27.3 % (42.0-52.0); Immature Granulocytes # (auto) 0.05 K/uL (0.01-0.20); Immature Granulocytes % (auto) 0.6 %; Lymphocytes # (auto) 1.47 K/uL (1.20-3.40); Lymphocytes % (auto) 16.7 %; Mean Corpuscular Hemoglobin 21.2 pg (25.0-34.0); Mean Corpuscular Hgb Conc 29.3 g/dL (32.0-36.0); Mean Corpuscular Volume 72.2 fL (80.0-100.0); Mean Platelet Volume 8.5 fL (9.4-12.4); Monocytes # (auto) 0.62 K/uL (0.11-0.59); Neutrophils # (auto) 5.78 K/uL (1.40-6.50); Neutrophils % (auto) 65.6 %; Platelet Count 355 K/uL (130-400); RDW Coefficient of Variation 17.8 % (11.5-14.5); RDW Standard Deviation 45.3 fL (36.4-46.3); Red Blood Count 3.78 M/uL (4.70-6.10); White Blood Count 8.81 K/ul (4.8-10.8)
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
[2025-02-21 13:49] LABS: Calcium 8.3 mg/dl (8.6-10.3); Potassium 3.9 mmol/L (3.5-5.1)
[2025-02-21 13:58] LABS: Creatinine Clr Calc Pharmacy 292.9 ml/min
[2025-02-21 14:00] LABS: Troponin I High Sensitivity 3.5 pg/ml (0-20)
--- NOTE | 2025-02-21 14:16 | Pharmacy Report ---
Pharmacy PK ABX Note - Date of Service February 21, 2025 - Assessment and Plan Assessment 02/21: * Urine culture from 02/19 grew Davis sensitive P. mirabilis. Buttock cultures from 02/19 both grew P. aeruginosa and S. aureus--sensitivities pending. Right foot culture from 02/19 grew P. aeruginosa and P. mirabilis--sensitivities pending * Vanco level drawn today was 22.5mcg/mL which extrapolates to an AUC/JOEL above the target range. Vancomycin has been adjusted [place] 1750mg iv q 12 hours s tarting this evening. * Renal function has been stable, patient has been afebrile, and leukocytosis has resolved. 02/20: 29 year old M receiving vancomcyin/zosyn for treatment of SST/possible UTI. Per tinent microbiologic data includes: blood cultures, wound cultures, urine culture pending. 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 Patient is quadriplegic with colostomy/suprapubic catheter, presented with worsening wounds on buttock/lower extremity. Will obtain early level to assist with dosing d/t overestimation of crcl with low SCr. Plan Vancomycin * Vancomycin level drawn today was 22.5mcg/mL which extrapolates to an AUC/JOEL of 679. * Maintenance dose changed to: 1750 mg IV every 12 hours * Regimen is predicted to achieve target AUC/JOEL of 400-600 mg/L.hr * Random level ordered for 02/23 at 0900 Pharmacy will continue to follow and will adjust dose/frequency as necessary. Thank you. Pharmacy has transitioned to AUC monitoring for vancomycin. AUC/JOEL is the pre ferred PK/PD target and is associated with decreased risk of nephrotoxicity compared to traditional trough targets.
[2025-02-21 14:19] LABS: Folate (Folic Acid),Ser orPlas 13.65 ng/ml (>5.38)
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
[2025-02-22] MEDS: VANCOMYCIN HCL 1,750 MG in SODIUM CHLORIDE 0.9% 500 ML IV SCH (02:35)
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
[2025-02-22 12:17] LABS: Hematocrit (blood only) 31.9 % (42.0-52.0); Mean Corpuscular Hemoglobin 20.4 pg (25.0-34.0); Mean Corpuscular Hgb Conc 28.2 g/dL (32.0-36.0); Mean Corpuscular Volume 72.3 fL (80.0-100.0); Mean Platelet Volume 8.3 fL (9.4-12.4); Platelet Count 461 K/uL (130-400); RDW Coefficient of Variation 18.3 % (11.5-14.5); RDW Standard Deviation 45.8 fL (36.4-46.3); Red Blood Count 4.41 M/uL (4.70-6.10)
[2025-02-22 12:28] LABS: Albumin Level 3.3 gm/dl (3.4-5.0); Bilirubin Direct 0.1 mg/dl (0-0.2); Bilirubin,Total 0.5 mg/dl (0.2-1.0); Calcium 8.6 mg/dl (8.6-10.3); Potassium 3.1 mmol/L (3.5-5.1)
[2025-02-22 12:34] LABS: BUN Creatinine Ratio 10.5 (10-20); Creatinine Clr Calc Pharmacy 236.4 ml/min; Total Protein 7.4 gm/dl (6.0-8.3)
[2025-02-22] MEDS: FERROUS SULFATE 325 MG TAB PO SCH (17:55)
[2025-02-22] MEDS: POTASSIUM CHLORIDE PWD 20 MEQ PACK PO SCH (21:53)
[2025-02-22] MEDS: POTASSIUM CHLORIDE / WTR 10 MEQ/100 ML PLCT IV SCH (21:53)
[2025-02-23] MEDS: FUROSEMIDE 40 MG TAB PO SCH (08:50)
[2025-02-23] MEDS: AMOXICILLIN/CLAVULANATE 875 MG TAB PO SCH (08:50)
[2025-02-23] MEDS: POTASSIUM CHLORIDE PWD 20 MEQ PACK PO SCH (08:50)
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
--- NOTE | 2025-02-23 16:52 | Communication Note ---
Patient seen and examined at bedside. Patient states that he has been compliant with therapies, states that it is not true that he has been refusing things (despite extensive documentation stating otherwise). States that he cannot eat (eating fast food throughout hospital stay brought in by friend). He states that he came from another hospital a few days ago and that he has no place to go after this. Also states he cannot turn in bed. During my encounter, patient uses fingers to squeeze his stoma and poop onto his abdomen. On exam, patient has extensive chronic wounds, increased body habitus. CT imaging reveals chronic osteomyelitis with decubitus ulcerations, inflammation of pannus and legs. Patient is medically stable for discharge. UTI can be managed with oral antibiotics. Wounds are chronic in nature and do not appear overtly infected. ID consulted and recommended treatment of UTI only. Patient states he is unable to turn and has nowhere to go. -PT/OT evaluations, psychiatry consultation for assessment of possible underlying personality/psychiatric pathology. Date of Service: February 23, 2025
[2025-02-24] MEDS ORDERED: FERROUS SULFATE 325 MG TAB PO SCH (09:00)
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
[2025-02-24 17:58] LABS: Codeine Urine NEGATIVE ng/mL (<50); Fentanyl, Urine >250.0 ng/mL (<0.5); Hydrocodone Urine NEGATIVE ng/mL (<50); Hydromor Urine NEGATIVE ng/mL (<50); MDA negative; MDEA negative; MDMA (Ecstasy) Urine, Confirm negative; Marijuana Quant, GCMS Urine 1078 ng/mL (<5); Morphine Urine 765 ng/mL (<50); Norfentanyl, Urine >250.0 ng/mL (<0.5); Norhydrocodone Conf Ur NEGATIVE ng/mL (<50); Noroxycodone Urine NEGATIVE ng/mL (<50); Oxycodone Urine NEGATIVE ng/mL (<50); Oxymorph Urine NEGATIVE ng/mL (<50); medMATCH Fentanyl, Urine DNR; medMATCH Norfentanyl, Urine DNR
[2025-02-25] MEDS ORDERED: AMOXICILLIN/CLAVULANATE 875 MG TAB PO SCH
[2025-02-25 08:10] VITALS: BP 112/73; PULSE 99; RESP 14; TEMP 98.1; O2SAT 98
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
--- NOTE | 2025-02-27 12:26 | Coding Query ---
SEPSIS To promote full compliance with coding requirements relating to patient care, physician participation is requested in all cases of mandarin tutor uncertainty. Please assist us with the question(s) below: In responding to this query, please exercise your independent professional judgement. The fact that a question is asked does not imply that any particular answer is desired or expected. We appreciate your clarification on this issue. Throughout the medical record, you have clearly documented a localized infection and your patient has clinical evidence of a generalized sepsis or severe sepsis. The term urosepsis is a nonspecific entity and is coded as an UTI. If the patient has sepsis, severe sepsis, from an urinary source or some other source, please clarify in your response below. The medical record reflects the following clinical findings: (With dates as appropriate) (Body temperature of >38.3 C(101 F) or <36 C(96.8F), pulse >90/minute, respirations >20/minute, WBC count >12,000 or <4,000, altered mental status, significant edema or positive fluid balance, hyperglycemia without diabetes, hypotension, metabolic acidosis (elev. lactate level, anion gap or reduced blood pH), shock, positive blood culture (enter organism) ____ ()Bacteremia (Nonspecific laboratory finding of bacteria in the blood) Specify Organism () Present on Admission (x) Not present on admission () Unable to clinically determine () Septicemia (Systemic disease associated with the presence of pathogenic microorganisms in the blood): Specify Organism (x) Present on Admission () Not present on admission () Unable to clinically determine () Sepsis Specify Organism Specify Associated Condition/Diagnosis (x) Present on Admission () Not present on admission () Unable to clinically determine () Severe Sepsis (Sepsis associated with acute organ dysfunction) Specify Organism Specify Associated Condition/Diagnosis () Present on Admission (x) Not present on admission () Unable to clinically determine () Septic Shock (Severe sepsis with acute circulatory failure, unexplained by other causes) () Present on Admission (x) Not present on admission () Unable to clinically determine () Other, patient has: MTDD
--- NOTE | 2025-02-27 12:27 | Coding Query ---
CODING QUERY To promote full compliance with coding requirements relating to patient care, provider participation is requested in all cases of vending route driver uncertainty. Please assist us with the question(s) below: Coding Question(s): Multiple PN states pt is quadraplegic and multiple state paraplegic. Please clarify which dx pt has. Physician's Response(s): hi there, he is a paraplegic. thank you! Thank you Teri Santoyo Principal Diagnosis: "that condition established after study, to be chiefly responsible for occasioning the admission of the patient to the hospital for care." Co-Existing Principal Diagnosis: "when two or more diagnoses equally meet the criteria for principal diagnosis as determined by the circumstances of admission, diagnostic work up, and/or therapy provided, and the Alphabetic Index, Tabular List, or another coding guideline does not provide sequencing direction, any one of the diagnoses may be sequenced first." "When the physician has documented what appears to be a current diagnosis in the body of the record, but has not included the diagnosis in the final diagnostic statement, the physician should be asked whether the diagnosis should be added." (Source [facility] 2 QTR90. p3-4) CONNIE
== END 2025-02-25 17:28 | disposition home or self-care (01) | DRG 698 ==
LOC: ED 19:49 → EDINP 02-20 03:42 → SUATTDRO 02-20 03:42 → EDINP 02-20 06:06 → 2W 02-20 09:02 → 3N 02-21 22:00